=== PATIENT | female | born 1990 | race Hispanic/Latino ===

== ENCOUNTER → 2017-01-15 | Outpatient (CLI) | payer MEDICAID ==
--- NOTE | 2017-01-15 15:37 | REP ---
Three extremity right knee two views right knee Signed by Doc Case MD 01/15/2017 03:28 P
--- NOTE | 2017-01-15 15:37 | REP ---
Right tibia-fibula four views : There is no fracture or dislocation. Mineralization and joint spaces are normal. There are no calcifications or foreign bodies. Impression: Negative right tibia-fibula . Signed by Doc Case MD 01/15/2017 03:28 P
== END ==
LOC: M RAD 10:10
PROVIDERS: ATTEND Physician Assistant Medical
DX: M79.604 Pain in right leg (principal)

== ENCOUNTER → 2017-05-21 | Outpatient (CLI) | payer OTHER ==
[2017-05-21 12:44] LABS: ANION GAP 5 MEQ/L (8-16); BLOOD UREA NITROGEN 9 MG/DL (7-18); CALCIUM LEVEL 8.5 MG/DL (8.5-10.1); CARBON DIOXIDE LEVEL 31 MEQ/L (21-32); CHLORIDE LEVEL 104 MEQ/L (98-107); CREATININE FOR GFR 0.62 MG/DL (0.55-1.02); GLOMERULAR FILTRATION RATE > 60.0 (>60); GLUCOSE, FASTING 90 MG/DL (70-100); POTASSIUM SERUM 3.9 MEQ/L (3.5-5.1); SODIUM LEVEL 140 MEQ/L (136-145)
== END ==
LOC: M LAB 11:46
DX: R03.0 Elevated blood-pressure reading, without diagnosis of hypertension (principal)
CPT/HCPCS: 80048

== ENCOUNTER 2017-05-28 13:35 | Emergency (ER) | payer OTHER ==
[2017-05-28] MEDS: NS 1,000 ML IV (15:15)
[2017-05-28 16:21] LABS: ANION GAP 8 MEQ/L (8-16); BLOOD UREA NITROGEN 8 MG/DL (7-18); CALCIUM LEVEL 8.6 MG/DL (8.5-10.1); CARBON DIOXIDE LEVEL 26 MEQ/L (21-32); CHLORIDE LEVEL 101 MEQ/L (98-107); CREATININE FOR GFR 0.71 MG/DL (0.55-1.30); GLOMERULAR FILTRATION RATE > 60.0 (>60); GLUCOSE, FASTING 96 MG/DL (70-100); POTASSIUM SERUM 3.7 MEQ/L (3.5-5.1); SODIUM LEVEL 135 MEQ/L (136-145)
[2017-05-28 16:22] LABS: BASO % 0.2 % (0.0-1.0); EOS % 0.1 % (0.0-3.0); HEMATOCRIT 41.9 % (36.0-47.0); HEMOGLOBIN 14.5 g/dl (12.0-16.0); IMMATURE GRANULOCYTE % 0.3 % (0-0); LYMPH # 0.7 10^3/uL (1.5-6.5); LYMPH % 5.6 % (24.0-44.0); MEAN CORPUSCULAR HEMOGLOBIN 29.1 pg (27.0-33.0); MEAN CORPUSCULAR HGB CONC 34.6 g/dl (32.0-36.5); MONO # 0.6 10^3/uL (0.0-0.8); MONO % 4.6 % (0.0-5.0); NEUTROPHILS # 11.2 10^3/uL (1.8-7.7); NEUTROPHILS % 89.2 % (36.0-66.0); PLATELET COUNT, AUTOMATED 285 10^3/uL (150-450); RED BLOOD COUNT 4.99 10^6/uL (4.00-5.40); RED CELL DISTRIBUTION WIDTH 12.3 % (11.5-14.5); WHITE BLOOD COUNT 12.5 10^3/uL (4.0-10.0)
[2017-05-28 16:24] LABS: KETONE, URINE AUTO RFX 1+ mg/dL (NEGATIVE); MUCUS, URINE RFX SMALL (NEGATIVE); NITRITE, URINE AUTO RFX NEGATIVE (NEGATIVE); RBC, URINE AUTO RFX 4 /HPF (0-3); SPECIFIC GRAVITY UR AUTO RFX 1.018 (1.002-1.035); SQUAM EPITHELIAL CELL UR AURFX 9 /HPF (0-6); WBC, URINE AUTO RFX 3 /HPF (0-3)
[2017-05-28 16:25] LABS: LEUKOCYTE ESTERASE UR AUTO RFX TRACE (NEGATIVE)
[2017-05-28 16:36] LABS: INFLUENZA A AMPLIFICATION NEGATIVE (NEGATIVE); INFLUENZA B AMPLIFICATION NEGATIVE (NEGATIVE)
[2017-05-28 16:40] LABS: CONTROL LINE UCG INT CTR LINE PRESENT; URINE PREG TEST NEGATIVE (NEGATIVE)
[2017-05-28] MEDS: KETOROLAC 30 MG/ML VIAL (J1885) IV (17:11)
[2017-05-28] MEDS: ONDANSETRON 4MG/2ML VIAL (J2405) IV (17:15)
[2017-05-28] MEDS: ACETAMINOPHEN 325 MG TAB PO (17:24)
== END 2017-05-28 18:17 | disposition home or self-care (01) ==
LOC: M ED 13:35
DX: B34.9 Viral infection, unspecified (principal); R11.10 Vomiting, unspecified; R19.7 Diarrhea, unspecified
CPT/HCPCS: J2405

== ENCOUNTER 2017-05-30 08:48 | Emergency (ER) | payer OTHER | END 2017-05-30 09:25 | disposition home or self-care (01) | LOC: M ED 08:48 | DX: J03.90 Acute tonsillitis, unspecified (principal); E66.9 Obesity, unspecified; G89.29 Other chronic pain | CPT/HCPCS: 99283 ==

== ENCOUNTER 2017-11-13 16:47 | Emergency (ER) | payer OTHER ==
[2017-11-13] MEDS ORDERED: IPRATROPIUM 0.5MG/ALBUTEROL 2.5MG INH SOL UD 3ML (DUONEB)(J7620) NEB (17:30)
[2017-11-13] MEDS: METOPROLOL TART 25 MG TABLET PO (17:30)
[2017-11-13 17:57] LABS: BASO % 0.2 % (0.0-1.0); EOS % 0.3 % (0.0-3.0); HEMATOCRIT 39.7 % (36.0-47.0); HEMOGLOBIN 13.6 g/dl (12.0-15.5); IMMATURE GRANULOCYTE % 0.3 % (0-3.0); LYMPH # 2.7 10^3/uL (1.5-6.5); MEAN CORPUSCULAR HEMOGLOBIN 29.2 pg (27.0-33.0); MEAN CORPUSCULAR HGB CONC 34.3 g/dl (32.0-36.5); MEAN CORPUSCULAR VOLUME 85.4 fl (80.0-96.0); MONO # 0.7 10^3/uL (0.0-0.8); NEUTROPHILS # 5.3 10^3/uL (1.8-7.7); NEUTROPHILS % 60.2 % (36.0-66.0); PLATELET COUNT, AUTOMATED 251 10^3/uL (150-450); RED BLOOD COUNT 4.65 10^6/uL (4.00-5.40); RED CELL DISTRIBUTION WIDTH 12.1 % (11.5-14.5); WHITE BLOOD COUNT 8.9 10^3/uL (4.0-10.0)
[2017-11-13] MEDS: ASPIRIN 81 MG CHEW TABLET PO (17:57)
[2017-11-13 18:01] LABS: ABG BASE EXCESS -0.3 (-2.0-2.0); ABG HCO3 20.5 MEQ/L (22.0-26.0); ABG O2 SATURATION 98.8 % (95.0-99.0); ABG PARTIAL PRESSURE CO2 24.6 mmHg (35.0-45.0); ABG PARTIAL PRESSURE O2 113.4 mmHg (75.0-100.0); ABG STANDARD HCO3 24.2 MEQ/L (22.0-26.0); ABG TOTAL CO2 21.3 MEQ/L (22.0-29.0); ABG pH (ARTERIAL) 7.539 UNITS (7.350-7.450)
[2017-11-13 18:12] LABS: CONTROL LINE HCG INT CTR LINE PRESENT; HCG, SERUM QUALITATIVE NEGATIVE (NEGATIVE)
[2017-11-13 18:20] LABS: ALBUMIN 3.2 GM/DL (3.2-5.2); ALBUMIN/GLOBULIN RATIO 0.89 (1.00-1.93); ALKALINE PHOSPHATASE 106 U/L (45-117); ALT/SGPT 27 U/L (12-78); ANION GAP 8 MEQ/L (8-16); AST/SGOT 9 U/L (7-37); BILIRUBIN,DIRECT 0.1 MG/DL (0.0-0.2); BILIRUBIN,TOTAL 0.4 MG/DL (0.2-1.0); BLOOD UREA NITROGEN 12 MG/DL (7-18); CALCIUM LEVEL 8.3 MG/DL (8.5-10.1); CARBON DIOXIDE LEVEL 25 MEQ/L (21-32); CHLORIDE LEVEL 107 MEQ/L (98-107); CPK CREATINE PHOSPHOKINASE 67 U/L (26-192); CREATININE FOR GFR 0.71 MG/DL (0.55-1.30); GLOMERULAR FILTRATION RATE > 60.0 (>60); GLUCOSE, FASTING 87 MG/DL (70-100); POTASSIUM SERUM 3.5 MEQ/L (3.5-5.1); SODIUM LEVEL 140 MEQ/L (136-145); TOTAL PROTEIN 6.8 GM/DL (6.4-8.2); TROPONIN I < 0.02 NG/ML (< 0.10)
[2017-11-13 18:21] LABS: CK-MB VALUE MASS < 1.0 NG/ML (<3.6); MB/CK RELATIVE INDEX 1.49 (< OR =4)
== END 2017-11-13 19:05 | disposition home or self-care (01) ==
LOC: M ED 16:47
DX: J45.901 Unspecified asthma with (acute) exacerbation (principal); I10 Essential (primary) hypertension; M54.9 Dorsalgia, unspecified; Z79.51 Long term (current) use of inhaled steroids
CPT/HCPCS: 71046

== ENCOUNTER → 2017-11-19 | Outpatient (REF) | payer OTHER | LOC: M LAB REF 17:12 | DX: J02.9 Acute pharyngitis, unspecified (principal) | CPT/HCPCS: 87070 ==

== ENCOUNTER 2017-12-10 23:17 | Emergency (ER) | payer OTHER ==
[2017-12-11] MEDS: ONDANSETRON 4 MG ORAL DISINTEGRATING TAB (Q0162 PER 1MG) PO (02:00)
[2017-12-11] MEDS: ACETAMINOPHEN TAB 650MG DOSE (2X325MG) PO (02:00)
== END 2017-12-11 04:44 | disposition home or self-care (01) ==
LOC: M ED 23:17
DX: S06.0X9A Concussion with loss of consciousness of unspecified duration, initial encounter (principal); W22.09XA Striking against other stationary object, initial encounter; Y92.098 Other place in other non-institutional residence as the place of occurrence of the external cause; Z79.51 Long term (current) use of inhaled steroids
CPT/HCPCS: Q0162

== ENCOUNTER 2018-01-02 21:29 | Emergency (ER) | payer OTHER ==
[2018-01-02] MEDS: ONDANSETRON 4 MG ORAL DISINTEGRATING TAB (Q0162 PER 1MG) PO (22:47)
== END 2018-01-02 22:57 | disposition home or self-care (01) ==
LOC: M ED 21:29
DX: R11.0 Nausea (principal)
CPT/HCPCS: Q0162

== ENCOUNTER → 2018-01-07 | Outpatient (REF) | payer OTHER, MEDICAID ==
[2018-01-07 20:37] LABS: CONTROL LINE HCG INT CTR LINE PRESENT; HCG, SERUM QUALITATIVE NEGATIVE (NEGATIVE)
== END ==
LOC: M LAB REF 19:05
DX: N91.0 Primary amenorrhea (principal)
CPT/HCPCS: 84703

== ENCOUNTER → 2018-01-07 | Outpatient (CLI) | payer OTHER, MEDICAID | LOC: M PAIN 10:30 | DX: M96.1 Postlaminectomy syndrome, not elsewhere classified (principal); J45.909 Unspecified asthma, uncomplicated; Z79.899 Other long term (current) drug therapy | CPT/HCPCS: G0463 ==

== ENCOUNTER 2018-01-12 01:04 | Emergency (ER) | payer OTHER, MEDICAID | END 2018-01-12 03:30 | disposition left against medical advice (07) | LOC: M ED 01:04 | DX: Z53.20 Procedure and treatment not carried out because of patient's decision for unspecified reasons (principal) ==

== ENCOUNTER → 2018-01-14 | Outpatient (REF) | payer OTHER, MEDICAID ==
[2018-01-14 15:16] LABS: ALBUMIN 3.5 GM/DL (3.2-5.2); ALBUMIN/GLOBULIN RATIO 1.09 (1.00-1.93); ALKALINE PHOSPHATASE 104 U/L (45-117); ALT/SGPT 27 U/L (12-78); ANION GAP 7 MEQ/L (8-16); AST/SGOT 6 U/L (7-37); BILIRUBIN,TOTAL 0.3 MG/DL (0.2-1.0); BLOOD UREA NITROGEN 9 MG/DL (7-18); CALCIUM LEVEL 8.5 MG/DL (8.5-10.1); CARBON DIOXIDE LEVEL 28 MEQ/L (21-32); CHLORIDE LEVEL 105 MEQ/L (98-107); CHOLESTEROL LEVEL 133 MG/DL (<200); CREATININE FOR GFR 0.58 MG/DL (0.55-1.30); GLOMERULAR FILTRATION RATE > 60.0 (>60); GLUCOSE, FASTING 96 MG/DL (70-100); HCG, SERUM QUANTITATIVE < 1.0 MIU/ML; HDL CHOLESTEROL 50 MG/DL (>40); LDL CHOLESTEROL 68 MG/DL (<100); NON-HDL-C 83 MG/DL; POTASSIUM SERUM 4.3 MEQ/L (3.5-5.1); SODIUM LEVEL 140 MEQ/L (136-145); TOTAL PROTEIN 6.7 GM/DL (6.4-8.2); TRIGLYCERIDES LEVEL 74 MG/DL (<150)
== END ==
LOC: M LAB REF 12:04
DX: Z13.9 Encounter for screening, unspecified (principal)

== ENCOUNTER 2018-01-27 00:16 | Emergency (ER) | payer OTHER, MEDICAID ==
[2018-01-27] MEDS: KETOROLAC TROMETHAMINE 10 MG TAB PO (01:21)
[2018-01-27] MEDS: ONDANSETRON 4 MG ORAL DISINTEGRATING TAB (Q0162 PER 1MG) PO (01:22)
== END 2018-01-27 01:26 | disposition home or self-care (01) ==
LOC: M ED 00:16
DX: R51 Headache (principal); F33.9 Major depressive disorder, recurrent, unspecified
CPT/HCPCS: Q0162

== ENCOUNTER → 2018-02-04 | Outpatient (CLI) | payer OTHER, MEDICAID | LOC: M PAIN 11:00 | DX: M96.1 Postlaminectomy syndrome, not elsewhere classified (principal); J45.909 Unspecified asthma, uncomplicated; Z79.899 Other long term (current) drug therapy | CPT/HCPCS: G0463 ==

== ENCOUNTER 2018-03-20 19:02 | Emergency (ER) | payer OTHER, MEDICAID ==
[2018-03-20 19:52] LABS: BASO % 0.2 % (0.0-1.0); EOS # 0.1 10^3/uL (0.0-0.50); EOS % 1.6 % (0.0-3.0); HEMATOCRIT 40.3 % (36.0-47.0); HEMOGLOBIN 13.8 g/dl (12.0-15.5); IMMATURE GRANULOCYTE % 0.2 % (0-3.0); LYMPH # 3.6 10^3/uL (1.5-4.5); MEAN CORPUSCULAR HEMOGLOBIN 29.4 pg (27.0-33.0); MEAN CORPUSCULAR HGB CONC 34.2 g/dl (32.0-36.5); MEAN CORPUSCULAR VOLUME 85.9 fl (80.0-96.0); MONO # 0.7 10^3/uL (0.0-0.8); MONO % 8.4 % (0.0-5.0); NEUTROPHILS # 4.1 10^3/uL (1.8-7.7); NEUTROPHILS % 47.6 % (36.0-66.0); PLATELET COUNT, AUTOMATED 267 10^3/uL (150-450); RED BLOOD COUNT 4.69 10^6/uL (4.00-5.40); RED CELL DISTRIBUTION WIDTH 12.5 % (11.5-14.5); WHITE BLOOD COUNT 8.6 10^3/uL (4.0-10.0)
[2018-03-20 19:56] LABS: CONTROL LINE HCG INT CTR LINE PRESENT; HCG, SERUM QUALITATIVE NEGATIVE (NEGATIVE)
[2018-03-20] MEDS: METOCLOPRAMIDE INJ 10MG/2ML VIAL (J2765) IV (20:04)
[2018-03-20] MEDS: MORPHINE 2 MG/ML 1ML SYRINGE (J2270) IV (20:05)
[2018-03-20 20:13] LABS: ANION GAP 8 MEQ/L (8-16); BLOOD UREA NITROGEN 7 MG/DL (7-18); CARBON DIOXIDE LEVEL 24 MEQ/L (21-32); CHLORIDE LEVEL 106 MEQ/L (98-107); GLOMERULAR FILTRATION RATE > 60.0 (>60); GLUCOSE, FASTING 106 MG/DL (70-100); SODIUM LEVEL 138 MEQ/L (136-145)
[2018-03-20] MEDS: KETOROLAC 30 MG/ML VIAL (J1885) IV (21:22)
== END 2018-03-20 21:19 | disposition home or self-care (01) ==
LOC: M ED 19:02
DX: G43.909 Migraine, unspecified, not intractable, without status migrainosus (principal); I10 Essential (primary) hypertension; Z79.899 Other long term (current) drug therapy
CPT/HCPCS: J1885

== ENCOUNTER 2018-04-02 19:21 | Emergency (ER) | payer OTHER ==
[2018-04-02] MEDS: methylPREDNISolone INJ 125 MG/2 ML VIAL (J2930) IM (20:04)
[2018-04-02] MEDS: KETOROLAC 60 MG/2 ML VIAL (J1885) IM (20:04)
[2018-04-02] MEDS: BACLOFEN 10 MG TAB PO (20:10)
== END 2018-04-02 20:46 | disposition home or self-care (01) ==
LOC: M ED 19:21
DX: G89.29 Other chronic pain (principal); M54.5 Low back pain; I10 Essential (primary) hypertension; J45.909 Unspecified asthma, uncomplicated; F32.9 Major depressive disorder, single episode, unspecified
CPT/HCPCS: J1885

== ENCOUNTER 2018-04-06 14:12 | Emergency (ER) | payer OTHER ==
[2018-04-06 15:08] LABS: KETONE, URINE AUTO RFX NEGATIVE (NEGATIVE); MUCUS, URINE RFX SMALL (NEGATIVE); NITRITE, URINE AUTO RFX NEGATIVE (NEGATIVE); RBC, URINE AUTO RFX TNTC /HPF (0-3); SPECIFIC GRAVITY UR AUTO RFX 1.019 (1.002-1.035); SQUAM EPITHELIAL CELL UR AURFX 13 /HPF (0-6); YEAST LIKE CELL URINE AUTO RFX LARGE
[2018-04-06 15:09] LABS: LEUKOCYTE ESTERASE UR AUTO RFX 3+ (NEGATIVE); WBC, URINE AUTO RFX TNTC /HPF (0-3)
[2018-04-06] MEDS: GI COCKTAIL 50ML BTL(HYOSCYAMINE/MAALOX/LIDOCAINE VISCOUS)(1:3:1) PO (16:32)
[2018-04-06] MEDS: NITROFURANTOIN (MACROBID) 100 MG CAP PO (16:32)
== END 2018-04-06 16:39 | disposition home or self-care (01) ==
LOC: M ED 14:12
DX: N39.0 Urinary tract infection, site not specified (principal); K21.0 Gastro-esophageal reflux disease with esophagitis; I10 Essential (primary) hypertension; F32.9 Major depressive disorder, single episode, unspecified
CPT/HCPCS: 81001

== ENCOUNTER 2018-04-08 11:16 | Emergency (ER) | payer OTHER ==
[2018-04-08 12:05] LABS: BASO % 0.2 % (0.0-1.0); EOS # 0.1 10^3/uL (0.0-0.50); EOS % 1.1 % (0.0-3.0); HEMATOCRIT 41.2 % (36.0-47.0); IMMATURE GRANULOCYTE % 0.5 % (0-3.0); LYMPH # 2.4 10^3/uL (1.5-4.5); LYMPH % 28.8 % (24.0-44.0); MEAN CORPUSCULAR HEMOGLOBIN 29.4 pg (27.0-33.0); MEAN CORPUSCULAR VOLUME 86.6 fl (80.0-96.0); MONO # 0.6 10^3/uL (0.0-0.8); MONO % 7.3 % (0.0-5.0); NEUTROPHILS # 5.2 10^3/uL (1.8-7.7); NEUTROPHILS % 62.1 % (36.0-66.0); PLATELET COUNT, AUTOMATED 263 10^3/uL (150-450); RED BLOOD COUNT 4.76 10^6/uL (4.00-5.40); RED CELL DISTRIBUTION WIDTH 12.3 % (11.5-14.5); WHITE BLOOD COUNT 8.4 10^3/uL (4.0-10.0)
[2018-04-08] MEDS: NS 1,000 ML IV (12:09)
[2018-04-08] MEDS: ONDANSETRON 4MG/2ML VIAL (J2405) IV (12:09)
[2018-04-08] MEDS: GASTROGRAFIN SOLUTION 30ML PO ×2 (12:09→12:43)
[2018-04-08 12:29] LABS: AMORPHOUS SEDIMENT RFX SMALL (NEGATIVE); KETONE, URINE AUTO RFX 1+ mg/dL (NEGATIVE); MUCUS, URINE RFX SMALL (NEGATIVE); NITRITE, URINE AUTO RFX NEGATIVE (NEGATIVE); RBC, URINE AUTO RFX 2 /HPF (0-3); SQUAM EPITHELIAL CELL UR AURFX 5 /HPF (0-6); WBC, URINE AUTO RFX 7 /HPF (0-3)
[2018-04-08 12:30] LABS: LEUKOCYTE ESTERASE UR AUTO RFX 1+ (NEGATIVE)
[2018-04-08 12:44] LABS: ALBUMIN 3.5 GM/DL (3.2-5.2); ALBUMIN/GLOBULIN RATIO 1.06 (1.00-1.93); ALKALINE PHOSPHATASE 104 U/L (45-117); ALT/SGPT 43 U/L (12-78); AMYLASE 34 U/L (25-115); ANION GAP 6 MEQ/L (8-16); AST/SGOT 16 U/L (7-37); BILIRUBIN,TOTAL 0.6 MG/DL (0.2-1.0); BLOOD UREA NITROGEN 8 MG/DL (7-18); CALCIUM LEVEL 8.5 MG/DL (8.5-10.1); CARBON DIOXIDE LEVEL 27 MEQ/L (21-32); CHLORIDE LEVEL 103 MEQ/L (98-107); CREATININE FOR GFR 0.53 MG/DL (0.55-1.30); GLOMERULAR FILTRATION RATE > 60.0 (>60); GLUCOSE, FASTING 86 MG/DL (70-100); LIPASE 63 U/L (73-393); POTASSIUM SERUM 4.1 MEQ/L (3.5-5.1); SODIUM LEVEL 136 MEQ/L (136-145); TOTAL PROTEIN 6.8 GM/DL (6.4-8.2)
[2018-04-08 12:51] LABS: CONTROL LINE HCG INT CTR LINE PRESENT; HCG, SERUM QUALITATIVE NEGATIVE (NEGATIVE)
[2018-04-08] MEDS: TRIMETHOBENZAMIDE HCL INJ 200 MG/2 ML VIAL (J3250) IM (13:36)
[2018-04-08] MEDS ORDERED: ISOVUE-370 76% 100ML VIAL (Q9967) As Ordered (13:38)
== END 2018-04-08 14:41 | disposition home or self-care (01) ==
LOC: M ED 11:16
DX: R10.9 Unspecified abdominal pain (principal); R11.10 Vomiting, unspecified; I10 Essential (primary) hypertension; K21.9 Gastro-esophageal reflux disease without esophagitis; F32.9 Major depressive disorder, single episode, unspecified; Z98.1 Arthrodesis status; Z79.899 Other long term (current) drug therapy
CPT/HCPCS: Q9963

== ENCOUNTER → 2018-05-06 | Outpatient (CLI) | payer OTHER ==
[~2018-05-06] MED LIST: AMLO5TAB6 PO; AMOX400S2 PO; BREO1INH3; FLOV100A3; GABAPOW41; IBUP-1022 PO; IBUP-1114 PO; LIDO1SOL7 MT; LISI-542; MACR100C43 PO; METO5TAB2 PO; MONT10TA2; OXAY1TAB; PROT1TAB2 PO; THERPAK PO; TIGA300C2 PO; TIZA4CAP PO; TIZANIDINE; VENTAER; ZOFR4TAB14 PO
--- NOTE | 2018-05-24 01:22 | ECWPNPC ---
PATIENT NAME: NEGAR OLMEDO : 1990 GENDER: FEMALE VISIT DATE: 05/06/2018 DISCHARGE DATE: 05/06/18 1629 VISIT LOCKED DATE TIME: PHYSICIAN: GERALDO SOFIA MD RESOURCE: GERALDO SOFIA MD REASON FOR APPOINTMENT 1. PRE SEDATE HISTORY OF PRESENT ILLNESS HISTORY OF PRESENT ILLNESS: PAIN THE PATIENT DESCRIBES THE PAIN... 28 YEAR OLD FEMALE PATIENT WITH A HISTORY OF CHRONIC LOW BACK PAIN. THE PATIENT DESCRIBES THE PAIN SHARP AND CONTINUOUS WITH A PAIN SCORE OF 6-10/10 DEPENDING ON PHYSICAL ACTIVITY. THE PATIENT SAYS HER PAIN STARTED MANY YEARS AGO AND SHE HAD A BACK SURGERY IN MARCH 2014, BUT THE PAIN PERSISTED. THE PATIENT SAYS THAT SHE HAS DIFFICULTY DOING DAILY ACTIVITIES SUCH CLEANING, COOKING, AND GROCERY SHOPPING. PATIENT DENIES UNEXPLAINABLE WEIGHT LOSS, FEVER, CHILLS, NEW CHANGES ON HER URINARY OR BOWEL CONTROL. FALL RISK SCREENING: SCREENING :NO FALLS IN THE PAST YEAR CURRENT MEDICATIONS TAKING SINGULAIR 10 MG TABLET 1 TABLET ORALLY BEFORE BEDTIME TAKING VENTOLIN HFA 108 (90 BASE) MCG/ACT AEROSOL SOLUTION 2 PUFFS NEEDED INHALATION EVERY 6 HRS TAKING BREO ELLIPTA 200-25 MCG/INH AEROSOL POWDER BREATH ACTIVATED 1 PUFF(ANORO SENT IN ERROR) INHALATION ONCE A DAY TAKING AMLODIPINE BESYLATE 5 MG TABLET 1 TABLET, IF BP > 160/90 TAKE A 2ND TABLET ORALLY ONCE A DAY TAKING LISINOPRIL 5 MG TABLET 1 TABLET, IF BP > 160/90 TAKE A 2ND TABLET ORALLY BID TAKING GELY ALLERGY 60 MG TABLET 1 TABLET NEEDED ORALLY TWICE A DAY TAKING FLOVENT HFA 220 MCG/ACT AEROSOL 1 PUFF INHALATION TWICE A DAY TAKING FLONASE 50 MCG/ACT SUSPENSION 1 SPRAY IN EACH NOSTRIL NASALLY ONCE A DAY TAKING FEXOFENADINE HCL 180 MG TABLET 1 TABLET NEEDED ORALLY ONCE A DAY TAKING OMEPRAZOLE 20 MG CAPSULE DELAYED RELEASE 1 CAPSULE ORALLY ONCE A DAY TAKING TIZANIDINE HCL 4 MG TABLET 1 TABLET NEEDED ORALLY BEFORE BEDTIME TAKING GABAPENTIN 300 MG CAPSULE 1 CAPSULE ORALLY TID MDD3 TAKING PERCOCET 5-325 MG TABLET 1 TABLET NEEDED ORALLY Q8H PRN MDD#3 #45 ATB SHOULD LAST 30 DAYS TAKING MELOXICAM 7.5 MG TABLET 1 TABLET ORALLY BID MEDICATION LIST REVIEWED AND RECONCILED WITH THE PATIENT PAST MEDICAL HISTORY ASTHMA S/P LUMBAR LAMINECTOMY SYNDROME HTN GERD SEASONAL ALLERGIES ALLERGIES N.K.D.A. SURGICAL HISTORY LUMBAR FUSION 2013 FAMILY HISTORY FATHER: ALIVE MOTHER: ALIVE, DIAGNOSED WITH DIABETES, HYPERTENSION 2 SISTER(S) - HEALTHY. 3 SON(S) , 3 DAUGHTER(S) - HEALTHY. SON WITH SEIZURE DISORDER, AUTISMSON WITH HEART PROBLEMS, KIDNEY PROBLEMS, FAILURE TO THRIVE,. SOCIAL HISTORY GENERAL: TOBACCO USE ARE YOU A:CURRENT SMOKER ELECTRONIC CIGARETTE ARE YOU INTERESTED IN QUITTING?READY TO QUIT COUNSELED THE PATIENT ON TOBACCO USE, CESSATION [id number]/15/2018 HOW MANY CIGARETTES A DAY DO YOU SMOKE?5 OR LESS PATIENT COUNSELED ON THE DANGERS OF TOBACCO USE AND URGED TO QUIT:03/11/2018 RECREATIONAL DRUG USE DRUG USE?NO CAFFEINE CAFFEINE USE?YES HOW OFTEN AND HOW MUCH? 2-3 CUPS COFFEE/DAY HIV / HEP-C SCREENING HIV TEST OFFERED TO PATIENT:YES DATE OFFERED:03/11/2018 TEST ACCEPTED:NO HEP-C TEST OFFERED TO PATIENT:YES DATE OFFERED:03/11/2018 REASON:PATIENT DECLINED TEST ACCEPTED:NO REASON:PATIENT DECLINED BROCHURE PROVIDED TO PATIENTYES MOSQUE MOSQUE NO HINDUISM BELIEFS THAT WOULD IMPACT HEALTH CARE. LANGUAGE LANGUAGES SPOKEN:BOTH LUXEMBOURGER AND HUNGARIAN HUNGARIAN IS PRIMARY LANGUAGE, FLUENT IN LUXEMBOURGER EDUCATION LEVEL OF EDUCATION:NOT FINISHED HIGH SCHOOL LEARNING BARRIERS / SPECIAL NEEDS CHANGE FROM LAST VISIT?NO BARRIERS TO LEARNING?NO HEARING IMPAIRED?NO VISION IMPAIRED?NO PT HAS "A LAZY EYE", AND HAS GLASSES FOR THIS, WHICH SHE RARELY WEARS. PT DENIES VISUAL IMPAIRMENT COGNITIVELY IMPAIRED?NO READINESS TO LEARN?YES LEARNING PREFERENCES?NO LEARNING CAPABILITIES PRESENT?YES EMOTIONAL BARRIERS?NO SPECIAL DEVICES?NO OPERATING ROOM MANAGER NEEDED?NO HUNGARIAN IS PRIMARY LANGUAGE, BUT IS FLUENT IN LUXEMBOURGER DOMESTIC VIOLENCE DO YOU FEEL SAFE IN YOUR ENVIRONMENT?YES OCCUPATION: WORKS AT [employer]. DIET: REGULAR. EXERCISE: NONE. MARITAL STATUS: . OTHERS AT HOME: SPOUSE, CHILDREN. PAIN CLINIC PFS, CLERGY, PUBLIC HEALTH REFERRALS PFS REFERRAL NEEDED?NO CLERGY REFERRAL NEEDED?NO PUBLIC HEALTH REFERRAL NEEDED?NO WAS THE PROVIDER NOTIFIED OF ANY PERTINENT INFO?NO HAS THE PATIENT BEEN EDUCATED REGARDING HIS/HER PLAN OF CARE?YES HAS THE PATIENT BEEN EDUCATED REGARDING PAIN, THE RISK FOR PAIN, THE IMPORTANCE OF EFFECTIVE PAIN MANAGEMENT, AND THE PAIN ASSESSMENT PROCESS?YES ADVANCE DIRECTIVE ADVANCE DIRECTIVE DISCUSSED WITH PATIENT:YES PT HAS NO ADVANCED DIRECTIVES, DECLINES HCP INFORMATION AT THIS TIME REVIEWED WITH PT 01/07/18 1130 LASREVIEWED WITH PATIENT 02/04/18 1120 JSREVIEWED WITH PATIENT 05/06/18 1435 JS. HOSPITALIZATION/MAJOR DIAGNOSTIC PROCEDURE BACK SURGERY 2013 REVIEW OF SYSTEMS REVIEWED BY: PROVIDER: GERALDO SOFIA MD . CONSTITUTIONAL: ANY CHANGE IN YOUR MEDICAL CONDITION? NO . CHILLS NO . FEVER NO . INFECTION: DO YOU HAVE NEW INFECTIONS? NO . DO YOU HAVE HISTORY OF MRSA? NO . MUSCULOSKELETAL: ANY NEW PATTERNS OF PAIN OR NUMBNESS? NO . GASTROENTEROLOGY: ANY NEW CHANGE IN BOWEL CONTROL? YES, STATES STRESS INCONTINENCE OF BOWELS, INSTRUCTED PATIENT TO DISCUSS WITH PCP . GENITOURINARY: ANY NEW CHANGE IN BLADDER CONTROL? YES, STATES STRESS INCONTINENCE OF BLADDER, INSTRUCTED PATIENT TO DISCUSS WITH PCP . IS THERE A CHANCE YOU COULD BE ? NO . HEMATOLOGY/LYMPH: DO YOU TAKE ANY BLOOD THINNERS? (FOR EXAMPLE- COUMADIN, PLAVIX, AGGRENOX, PLATEL, PRADAXA, OR XARELTO) NO . WHEN WAS YOUR LAST DOSE? DATE: TIME: . NEUROLOGY: HAVE YOU FALLEN IN THE PAST 6 MONTHS? YES, STATES 3 FALLS IN ONE DAY IN MARCH, CAUSING INCREASED PAIN TO LOWER BACK, WENT TO ED, RECEIVED PAIN MEDICATION, NO IMAGING TAKEN . ANY NEW EXTREMITY NUMBNESS OR WEAKNESS? NO . CARDIOLOGY: DO YOU HAVE A PACEMAKER OR DEFIBRILLATOR? NO . RESPIRATORY: HAVE YOU BEEN SICK IN THE PAST WEEK? NO . FEVER NO . FLU LIKE SYMPTOMS? NO . COUGH NO . INTEGUMENTARY: DO YOU HAVE ANY RASHES OR OPEN SORES? NO . ALLERGIC/IMMUNO: ARE YOU ALLERGIC TO SHELLFISH OR IV DYE? NO . ANY NEW ALLERGIES? NO . PSYCHIATRIC: DO YOU HAVE THOUGHTS OF HURTING YOURSELF OR SOMEONE ELSE? NO . ARE YOU ABUSED, NEGLECTED, OR IN AN UNSAFE ENVIRONMENT? NO . ENDOCRINOLOGY: ARE YOU DIABETIC? NO . OTHER: DO YOU NEED ANY PRESCRIPTIONS? NO . IF YES, PLEASE LIST: ____ . ANY NEW PROBLEMS WITH YOUR MEDICATIONS? NO . WHEN DID YOU LAST EAT? ____ . WHEN DID YOU LAST DRINK? ____ . WHAT DID YOU LAST DRINK? ____ . NAME OF PERSON DRIVING YOU HOME? ____ . DO YOU HAVE ANY OTHER QUESTIONS OR CONCERNS NO . VITAL SIGNS WT 190.2 LBS, HT 62 IN, BMI 34.78 INDEX, BP 128/77 MM HG, HR 98 /MIN, RR 18 /MIN, TEMP 97.1 F, OXYGEN SAT % 98%, SAFE IN ENV? (Y/N) YES, NA INITIALS 14:13 VA, REVIEWED BY: JS. EXAMINATION GENERAL EXAMINATION: PATIENT IS ALERT O X 3 AND COOPERATIVE. TENDERNESS IN THE LOW BACK AREA. PRESENCE OF TRIGGER POINTS AND BANDS OF TISSUE WITH RESTRICTION OF MOVEMENT. ASSESSMENTS MYALGIA, OTHER SITE - M79.18 (PRIMARY) TREATMENT MYALGIA, OTHER SITE CLINICAL NOTES: WE DISCUSSED SEVERAL ISSUES WITH MRS. OLMEDO'S PAIN MANAGEMENT CASE. DUE TO THE TRIGGER POINTS, BANDS OF TISSUE, AND RESTRICTION OF MOVEMENT, I WOULD LIKE TO MOVE FORWARD WITH A TRIGGER POINT INJECTION. WE DISCUSSED THE BENEFITS, RISKS, AND ALTERNATIVES OF THE INJECTION AND THE PATIENT WOULD LIKE TO PROCEED. THE PATIENT WILL CONSIDER A LUMBAR FACET THERAPEUTIC BLOCK IN THE FUTURE DEPENDING ON THE RESULTS OF THE TRIGGER POINT. THE PATIENT WILL FOLLOW UP 3 WEEKS AFTER THE INJECTION. INSTRUCTIONS WERE GIVEN, QUESTIONS WERE ANSWERED, PATIENT REPORTS UNDERSTANDING AND AGREES WITH THE PLAN. , INSTRUCTIONS WERE GIVEN, QUESTIONS WERE ANSWERED, PATIENT REPORTS UNDERSTANDING AND AGREES WITH THE PLAN. I, GOOD EMERY, DOCUMENTED THE ABOVE INFORMATION ACTING A SCRIBE FOR DR. SOFIA. I HAVE REVIEWED THE ABOVE DOCUMENT, WRITTEN BY GOOD SMITH AND I VERIFY THAT IT IS ACCURATE. OTHERS NOTES: TRIGGER POINT INJECTION: YOUR EXPERIENCE MATERIAL WAS PRINTED,TRIGGER POINT INJECTION MATERIAL WAS PRINTED. PREVENTIVE MEDICINE PAIN CLINIC TEACHING: PROCEDURE TEACHING PT GIVEN WRITTEN AND VERBAL EDUCATION ON TRIGGER POINT INJECTION, PT ALSO GIVEN WRITTEN AND VERBAL PRE-PROCEDURE INSTRUCTION. PT VERBALIZES UNDERSTANDING OF ALL EDUCATION AND INSTRUCTIONS. RICHA ULLOA 05/06/2018 4:39:38 PM > . PROCEDURE CODES FA211 ESTABILISHED PATIENT [facility] FACILITY CHARGE G8427 CURRENT MEDS W/DOSAGES DOCUMENTED G8730 PAIN ASSESS POS TOOL F/U PLAN DOC DISPOSITION & COMMUNICATION FOLLOW UP 3 WEEKS ELECTRONICALLY SIGNED BY GERALDO SOFIA MD, ON 05/23/2018 AT 06:55 PM EST DISCLAIMER : THIS IS A VISIT SUMMARY EXTRACTED FROM THE [employer] CHART. IT IS NOT A COPY OF THE [employer] PROGRESS NOTE. MTDD
== END ==
LOC: M PAIN 15:15
PROVIDERS: ATTEND Anesthesiology
DX: M79.18 Myalgia, other site (principal); M54.5 Low back pain; J45.909 Unspecified asthma, uncomplicated; I10 Essential (primary) hypertension; K21.9 Gastro-esophageal reflux disease without esophagitis; F17.290 Nicotine dependence, other tobacco product, uncomplicated; Z79.51 Long term (current) use of inhaled steroids; Z79.899 Other long term (current) drug therapy; Z91.81 History of falling

== ENCOUNTER → 2018-07-06 | Outpatient (CLI) | payer OTHER ==
[~2018-07-06] MED LIST changes: +BUPIVACAINE HCL 0.25% 10 ML VIAL As Ordered ONE; +BUPIVACAINE HCL 0.25% 30 ML VIAL As Ordered ONE; +TRIAMCINOLONE ACETONIDE SUSP 40 MG/ML VIAL (J3301) As Ordered ONE; +diazePAM 5 MG TAB As Ordered ONE; +oxyCODONE 5MG TAB As Ordered ONE
--- NOTE | 2018-07-20 02:01 | ECWPNPC ---
PATIENT NAME: NEGAR OLMEDO : 1990 GENDER: FEMALE VISIT DATE: 07/06/2018 DISCHARGE DATE: 07/06/18 1505 VISIT LOCKED DATE TIME: PHYSICIAN: GERALDO SOFIA MD RESOURCE: GERALDO SOFIA MD HISTORY OF PRESENT ILLNESS HISTORY OF PRESENT ILLNESS: PAIN THE PATIENT DESCRIBES THE PAIN... FALL RISK SCREENING: SCREENING : NO FALLS IN THE PAST YEAR. CURRENT MEDICATIONS TAKING MELOXICAM 7.5 MG TABLET 1 TABLET ORALLY BID, NOTES: 2 WEEKS TAKING VENTOLIN HFA 108 (90 BASE) MCG/ACT AEROSOL SOLUTION 2 PUFFS NEEDED INHALATION EVERY 6 HRS, NOTES: 2 WEEKS TAKING BREO ELLIPTA 200-25 MCG/INH AEROSOL POWDER BREATH ACTIVATED 1 PUFF(ANORO SENT IN ERROR) INHALATION ONCE A DAY, NOTES: 2 WEEKS TAKING GELY ALLERGY 60 MG TABLET 1 TABLET NEEDED ORALLY TWICE A DAY, NOTES: 2 WEEKS TAKING FLOVENT HFA 220 MCG/ACT AEROSOL 1 PUFF INHALATION TWICE A DAY, NOTES: 2 WEEKS TAKING AMLODIPINE BESYLATE 5 MG TABLET 1 TABLET, IF BP > 160/90 TAKE A 2ND TABLET ORALLY ONCE A DAY, NOTES: 2 WEEKS TAKING LISINOPRIL 10 MG TABLET 1 TABLET ORALLY BID, NOTES: 2 WEEKS TAKING PERCOCET 5-325 MG TABLET 1 TABLET NEEDED ORALLY Q8H PRN MDD#3 #45 ATB SHOULD LAST 30 DAYS, NOTES: 1 MONTH TAKING GABAPENTIN 300 MG CAPSULE 1 CAPSULE ORALLY TID MDD3, NOTES: 2-3 WEEKS TAKING TIZANIDINE HCL 4 MG TABLET 1 TABLET NEEDED ORALLY BEFORE BEDTIME, NOTES: 2-3 WEEKS NOT-TAKING SINGULAIR 10 MG TABLET 1 TABLET ORALLY BEFORE BEDTIME NOT-TAKING OMEPRAZOLE 20 MG CAPSULE DELAYED RELEASE 1 CAPSULE ORALLY ONCE A DAY NOT-TAKING FLONASE 50 MCG/ACT SUSPENSION 1 SPRAY IN EACH NOSTRIL NASALLY ONCE A DAY MEDICATION LIST REVIEWED AND RECONCILED WITH THE PATIENT PAST MEDICAL HISTORY ASTHMA S/P LUMBAR LAMINECTOMY SYNDROME HTN GERD SEASONAL ALLERGIES ALLERGIES N.K.D.A. SURGICAL HISTORY LUMBAR FUSION 2013 FAMILY HISTORY FATHER: ALIVE MOTHER: ALIVE, DIAGNOSED WITH HYPERTENSION, DIABETES 2 SISTER(S) - HEALTHY. 3 SON(S) , 3 DAUGHTER(S) - HEALTHY. SON WITH SEIZURE DISORDER, AUTISMSON WITH HEART PROBLEMS, KIDNEY PROBLEMS, FAILURE TO THRIVE,. SOCIAL HISTORY GENERAL: TOBACCO USE ARE YOU A:CURRENT SMOKER ELECTRONIC CIGARETTE ARE YOU INTERESTED IN QUITTING?READY TO QUIT COUNSELED THE PATIENT ON TOBACCO USE, CESSATION [id number]/15/2018 HOW MANY CIGARETTES A DAY DO YOU SMOKE?5 OR LESS PATIENT COUNSELED ON THE DANGERS OF TOBACCO USE AND URGED TO QUIT:07/06/2018 LATEX QUESTIONNAIRE LATEX ALLERGY : HAVE YOU EVER DEVELOPED ANY TYPE OF REACTION AFTER HANDLING LATEX PRODUCTS SUCH RUBBER GLOVES, CONDOMS, DIAPHRAGMS, BALLOONS, SOCKS, OR UNDERWEAR?NO LATEX ALLERGY : HAVE YOU EVER DEVELOPED ANY TYPE OF REACTION DURING OR AFTER DENTAL APPOINTMENT, VAGINAL/RECTAL EXAMINATION, SURGICAL PROCEDURE, OR ANY OTHER EXPOSURE?NO LATEX RISK : HAVE YOU EVER HAD ANY DIFFICULTY BREATHING OR HIVES AFTER EATING OR HANDLING ANY FRUITS, OR VEGETABLES; SUCH KIWI, BANANAS, STONE FRUITS, OR CHESTNUTSNO LATEX RISK : DO YOU HAVE A PREVIOUS PERSONAL HISTORY OF MORE THAN NINE SURGERIES, SPINA BIFIDA, OR REPEATED CATHERTIZATIONS? NO LATEX RISK : ARE YOU FREQUENTLY EXPOSED TO LATEX PRODUCTS IN YOUR OCCUPATION?NO DATE ASKED : 07/06/2018 RECREATIONAL DRUG USE DRUG USE?NO CAFFEINE CAFFEINE USE?YES HOW OFTEN AND HOW MUCH? 2-3 CUPS COFFEE/DAY HIV / HEP-C SCREENING HIV TEST OFFERED TO PATIENT:YES DATE OFFERED:03/11/2018 TEST ACCEPTED:NO HEP-C TEST OFFERED TO PATIENT:YES DATE OFFERED:03/11/2018 REASON:PATIENT DECLINED TEST ACCEPTED:NO REASON:PATIENT DECLINED BROCHURE PROVIDED TO PATIENTYES ROMAN CATHOLIC ROMAN CATHOLIC NO METHODIST BELIEFS THAT WOULD IMPACT HEALTH CARE. LANGUAGE LANGUAGES SPOKEN:BOTH TURKMEN AND KHMER KHMER IS PRIMARY LANGUAGE, FLUENT IN TURKMEN EDUCATION LEVEL OF EDUCATION:NOT FINISHED HIGH SCHOOL LEARNING BARRIERS / SPECIAL NEEDS CHANGE FROM LAST VISIT?NO BARRIERS TO LEARNING?NO HEARING IMPAIRED?NO VISION IMPAIRED?NO PT HAS "A LAZY EYE", AND HAS GLASSES FOR THIS, WHICH SHE RARELY WEARS. PT DENIES VISUAL IMPAIRMENT COGNITIVELY IMPAIRED?NO READINESS TO LEARN?YES LEARNING PREFERENCES?NO LEARNING CAPABILITIES PRESENT?YES EMOTIONAL BARRIERS?NO SPECIAL DEVICES?NO CAR REFINISHER NEEDED?NO KHMER IS PRIMARY LANGUAGE, BUT IS FLUENT IN TURKMEN DOMESTIC VIOLENCE DO YOU FEEL SAFE IN YOUR ENVIRONMENT?YES OCCUPATION: WORKS AT [employer]. DIET: REGULAR. EXERCISE: NONE. MARITAL STATUS: . OTHERS AT HOME: SPOUSE, CHILDREN. PAIN CLINIC PFS, CLERGY, PUBLIC HEALTH REFERRALS PFS REFERRAL NEEDED?NO CLERGY REFERRAL NEEDED?NO PUBLIC HEALTH REFERRAL NEEDED?NO WAS THE PROVIDER NOTIFIED OF ANY PERTINENT INFO?YES HAS THE PATIENT BEEN EDUCATED REGARDING HIS/HER PLAN OF CARE?YES HAS THE PATIENT BEEN EDUCATED REGARDING PAIN, THE RISK FOR PAIN, THE IMPORTANCE OF EFFECTIVE PAIN MANAGEMENT, AND THE PAIN ASSESSMENT PROCESS?YES ADVANCE DIRECTIVE ADVANCE DIRECTIVE DISCUSSED WITH PATIENT:YES PT HAS NO ADVANCED DIRECTIVES, DECLINES HCP INFORMATION AT THIS TIME REVIEWED WITH PT 01/07/18 1130 LASREVIEWED WITH PATIENT 02/04/18 1120 JSREVIEWED WITH PATIENT 05/06/18 1435 JS. HOSPITALIZATION/MAJOR DIAGNOSTIC PROCEDURE BACK SURGERY 2013 REVIEW OF SYSTEMS REVIEWED BY: PROVIDER: . CONSTITUTIONAL: ANY CHANGE IN YOUR MEDICAL CONDITION? NO . CHILLS NO . FEVER NO . INFECTION: DO YOU HAVE NEW INFECTIONS? NO . DO YOU HAVE HISTORY OF MRSA? NO . MUSCULOSKELETAL: ANY NEW PATTERNS OF PAIN OR NUMBNESS? NO . GASTROENTEROLOGY: ANY NEW CHANGE IN BOWEL CONTROL? NO . GENITOURINARY: ANY NEW CHANGE IN BLADDER CONTROL? NO . IS THERE A CHANCE YOU COULD BE ? NO . HEMATOLOGY/LYMPH: DO YOU TAKE ANY BLOOD THINNERS? (FOR EXAMPLE- COUMADIN, PLAVIX, AGGRENOX, PLATEL, PRADAXA, OR XARELTO) NO . WHEN WAS YOUR LAST DOSE? DATE: TIME: . NEUROLOGY: HAVE YOU FALLEN IN THE PAST 12 MONTHS? YES, PT STATES THAT SHE FELL AT HOME IN DRIVEWAY, SLIPPED ON ICE, WENT TO ED, RECEIVED INJECTIONS FOR PAIN. 2 MONTHS AGO . ANY NEW EXTREMITY NUMBNESS OR WEAKNESS? YES, INCREASED PAIN AND WEAKNESS IN LEGS . CARDIOLOGY: DO YOU HAVE A PACEMAKER OR DEFIBRILLATOR? NO . RESPIRATORY: HAVE YOU BEEN SICK IN THE PAST WEEK? NO . FEVER NO . FLU LIKE SYMPTOMS? NO . COUGH NO . INTEGUMENTARY: DO YOU HAVE ANY RASHES OR OPEN SORES? NO . ALLERGIC/IMMUNO: ARE YOU ALLERGIC TO IV DYE? NO . ANY NEW ALLERGIES? NO . PSYCHIATRIC: DO YOU HAVE THOUGHTS OF HURTING YOURSELF OR SOMEONE ELSE? NO . ARE YOU ABUSED, NEGLECTED, OR IN AN UNSAFE ENVIRONMENT? NO . ENDOCRINOLOGY: ARE YOU DIABETIC? NO . OTHER: DO YOU NEED ANY PRESCRIPTIONS? NO . IF YES, PLEASE LIST: ____ . ANY NEW PROBLEMS WITH YOUR MEDICATIONS? NO . WHEN DID YOU LAST EAT? 07/05 8PM . WHEN DID YOU LAST DRINK? 07/05 11PM . WHAT DID YOU LAST DRINK? WATER . NAME OF PERSON DRIVING YOU HOME? ELSI VO . DO YOU HAVE ANY OTHER QUESTIONS OR CONCERNS NO . VITAL SIGNS WT 193 LBS, HT 62 IN, BMI 35.30 INDEX, BP 146/94 MM HG, HR 88 /MIN, RR 18 /MIN, TEMP 98.6 F, OXYGEN SAT % 97%, SAFE IN ENV? (Y/N) Y, NA INITIALS AW 1313, REVIEWED BY: DS. ASSESSMENTS MYALGIA, OTHER SITE - M79.18 (PRIMARY) PROCEDURES PN TRIGGER POINT INJECTION WITH STEROIDS PRE PROCEDURE DIAGNOSIS 1. MYALGIA 2. PAIN AT BILATERAL LOW BACK AREA POST PROCEDURE DIAGNOSIS 1. MYALGIA 2. PAIN AT BILATERAL LOW BACK AREA PROCEDURE TRIGGER POINT INJECTION AT BILATERAL LOW BACK AREA SURGEON DR. GERALDO SOFIA RAIL SPLITTER NONE ANESTHESIA LOCAL PRE PROCEDURE NOTE THE PATIENT HAS A HISTORY OF CHRONIC PAIN AT THE RIGHT AND LEFT LOW BACK AREA. I EVALUATE THE PATIENT AND REVIEWED THE CHART. THERE IS EVIDENCE OF BANDS OF TISSUE WITH RESTRICTION OF MOVEMENT AND PRESENCE OF TRIGGER POINT AT THE AFFECTED AREA. I WENT OVER THE RISKS, ALTERNATIVES, AND BENEFITS ASSOCIATED WITH THIS PROCEDURE. THE PATIENT WOULD LIKE TO PROCEED AND GIVE CONSENT TO PERFORMED THE PROCEDURE. THE PATIENT DENIES UNEXPLAINABLE WEIGHT LOSS, FEVER, CHILLS, OR NEW CHANGES IN URINARY OR BOWEL CONTROL DESCRIPTION OF PROCEDURE THE PATIENT WAS BROUGHT TO THE PROCEDURE ROOM AND PLACED IN THE SITTING POSITION. THE AREA WAS CLEANED WITH ALCOHOL. THE PROCEDURE WAS DONE USING ASEPTIC STERILE TECHNIQUE. I CHECKED LATERALITY AND THE LEVEL WHERE THE PROCEDURE WAS GOING TO BE PERFORMED WITH THE PATIENT AND THE SUPPORTING STAFF AT THE MOMENT OF THE TIME OUT IN THE PROCEDURE ROOM. USING A 25-GAUGE NEEDLE, TRIGGER POINTS WERE INJECTED AT THE RIGHT AND LEFT LOW BACK AREA WITH A TOTAL OF 40 ML OF BUPIVACAINE 0.25% AND KENALOG 40 MG. THERE WAS NO EVIDENCE OF BLOOD, PARESTHESIA OR CEREBROSPINAL FLUID DURING THE PROCEDURE. THE PATIENT WAS SENT TO THE RECOVERY ROOM. THE PATIENT WAS MOVING THE EXTREMITIES AND DOING WELL. THERE WAS NO COMPLICATION DURING THE PROCEDURE POST PROCEDURE NOTE THE PATIENT WILL BE SEEN IN A FOLLOW UP IN THE NEXT FEW WEEKS. INSTRUCTIONS WERE GIVEN, QUESTIONS WERE ANSWERED, AND THE PATIENT EXPRESSED UNDERSTANDING AND AGREES WITH THE PLAN. I, GOOD EMERY, DOCUMENTED THE ABOVE INFORMATION ACTING A SCRIBE FOR DR. SOFIA. I HAVE REVIEWED THE ABOVE DOCUMENT, WRITTEN BY GOOD SMITH AND I VERIFY THAT IT IS ACCURATE. PROCEDURE CODES 14356 INJ TRIGGER POINT / MUSCL DISPOSITION & COMMUNICATION FOLLOW UP 3 WEEKS ELECTRONICALLY SIGNED BY GERALDO SOFIA MD, MD ON 07/19/2018 AT 06:31 PM EDT DISCLAIMER : THIS IS A VISIT SUMMARY EXTRACTED FROM THE [employer] CHART. IT IS NOT A COPY OF THE [employer] PROGRESS NOTE. SONU
== END ==
LOC: M PAIN 12:30
PROVIDERS: ATTEND Anesthesiology
DX: M79.18 Myalgia, other site (principal); J45.909 Unspecified asthma, uncomplicated; I10 Essential (primary) hypertension; K21.9 Gastro-esophageal reflux disease without esophagitis; F17.290 Nicotine dependence, other tobacco product, uncomplicated; Z98.1 Arthrodesis status; Z79.891 Long term (current) use of opiate analgesic; Z79.899 Other long term (current) drug therapy
CPT/HCPCS: 20552; J3301

== ENCOUNTER 2018-07-20 09:14 | Outpatient (RCR) | payer OTHER ==
[~2018-07-20 09:14] MED LIST changes: -BUPIVACAINE HCL 0.25% 10 ML VIAL As Ordered ONE; -BUPIVACAINE HCL 0.25% 30 ML VIAL As Ordered ONE; -TRIAMCINOLONE ACETONIDE SUSP 40 MG/ML VIAL (J3301) As Ordered ONE; -diazePAM 5 MG TAB As Ordered ONE; -oxyCODONE 5MG TAB As Ordered ONE
== END 2018-07-25 ==
LOC: M PT 09:14
PROVIDERS: ATTEND Physician Assistant Medical
DX: Z51.89 Encounter for other specified aftercare (principal); M25.561 Pain in right knee

== ENCOUNTER → 2018-08-20 | Outpatient (CLI) | payer OTHER ==
[~2018-08-20] MED LIST changes: -LIDO1SOL7 MT; +LIDO1SOL8 MT
--- NOTE | 2018-09-06 00:38 | ECWPNPC ---
PATIENT NAME: NEGAR OLMEDO : 1990 GENDER: FEMALE VISIT DATE: 08/20/2018 DISCHARGE DATE: 08/20/18 1454 VISIT LOCKED DATE TIME: PHYSICIAN: GERALDO SOFIA MD RESOURCE: GERALDO SOFIA MD REASON FOR APPOINTMENT 1. POST TPI R/S FROM 07/26 HISTORY OF PRESENT ILLNESS HISTORY OF PRESENT ILLNESS: PAIN THE PATIENT DESCRIBES THE PAIN... 28 YEAR OLD FEMALE PATIENT WITH A HISTORY OF CHRONIC BACK PAIN. THE PATIENT DESCRIBES THE PAIN SHARP AND CONTINUOUS WITH A PAIN SCORE OF 7-10/10 DEPENDING ON PHYSICAL ACTIVITY. THE PATIENT RECEIVED A TRIGGER POINT INJECTION ON 07/06/2018 AND REPORTS THAT IT DID NOT HELP. THE PATIENT HAS BEEN USING 1 OXYCODONE PER DAY TO AID IN PAIN RELIEF. THE PATIENT HAS A HISTORY OF A BACK SURGERY IN 2013, BUT SAYS HER PAIN PERSISTED. PATIENT DENIES UNEXPLAINABLE WEIGHT LOSS, FEVER, CHILLS, NEW CHANGES ON HER URINARY OR BOWEL CONTROL. FALL RISK SCREENING: SCREENING :NO FALLS REPORTED IN THE LAST YEAR CURRENT MEDICATIONS TAKING VENTOLIN HFA 108 (90 BASE) MCG/ACT AEROSOL SOLUTION 2 PUFFS NEEDED INHALATION EVERY 6 HRS TAKING BREO ELLIPTA 200-25 MCG/INH AEROSOL POWDER BREATH ACTIVATED 1 PUFF(ANORO SENT IN ERROR) INHALATION ONCE A DAY TAKING FLOVENT HFA 220 MCG/ACT AEROSOL 1 PUFF INHALATION TWICE A DAY TAKING AMLODIPINE BESYLATE 5 MG TABLET 1 TABLET, IF BP > 160/90 TAKE A 2ND TABLET ORALLY ONCE A DAY TAKING LISINOPRIL 10 MG TABLET 1 TABLET ORALLY BID TAKING TIZANIDINE HCL 4 MG TABLET 1 TABLET NEEDED ORALLY BEFORE BEDTIME TAKING GABAPENTIN 300 MG CAPSULE 1 CAPSULE ORALLY TID MDD3 TAKING PERCOCET 5-325 MG TABLET 1 TABLET NEEDED ORALLY Q8H PRN MDD#3 #45 ATB SHOULD LAST 30 DAYS NOT-TAKING MELOXICAM 7.5 MG TABLET 1 TABLET ORALLY BID NOT-TAKING GELY ALLERGY 60 MG TABLET 1 TABLET NEEDED ORALLY TWICE A DAY NOT-TAKING SINGULAIR 10 MG TABLET 1 TABLET ORALLY BEFORE BEDTIME NOT-TAKING OMEPRAZOLE 20 MG CAPSULE DELAYED RELEASE 1 CAPSULE ORALLY ONCE A DAY NOT-TAKING FLONASE 50 MCG/ACT SUSPENSION 1 SPRAY IN EACH NOSTRIL NASALLY ONCE A DAY MEDICATION LIST REVIEWED AND RECONCILED WITH THE PATIENT PAST MEDICAL HISTORY ASTHMA S/P LUMBAR LAMINECTOMY SYNDROME HTN GERD SEASONAL ALLERGIES BACK PAIN ALLERGIES N.K.D.A. SURGICAL HISTORY LUMBAR FUSION 2013 FAMILY HISTORY FATHER: ALIVE MOTHER: ALIVE, DIAGNOSED WITH DIABETES, HYPERTENSION 2 SISTER(S) - HEALTHY. 3 SON(S) , 3 DAUGHTER(S) - HEALTHY. SON WITH SEIZURE DISORDER, AUTISM\\NSON WITH HEART PROBLEMS, KIDNEY PROBLEMS, FAILURE TO THRIVE,. SOCIAL HISTORY GENERAL: TOBACCO USE ARE YOU A:CURRENT SMOKER ELECTRONIC CIGARETTE ARE YOU INTERESTED IN QUITTING?THINKING ABOUT QUITTING HOW MANY CIGARETTES A DAY DO YOU SMOKE?5 OR LESS PATIENT COUNSELED ON THE DANGERS OF TOBACCO USE AND URGED TO QUIT:08/20/2018 HIV / HEP-C SCREENING HIV TEST OFFERED TO PATIENT:YES DATE OFFERED:03/11/2018 TEST ACCEPTED:NO HEP-C TEST OFFERED TO PATIENT:YES DATE OFFERED:03/11/2018 REASON:PATIENT DECLINED TEST ACCEPTED:NO REASON:PATIENT DECLINED BROCHURE PROVIDED TO PATIENTYES OTHERS AT HOME: SPOUSE, CHILDREN. EDUCATION LEVEL OF EDUCATION:NOT FINISHED HIGH SCHOOL DIET: REGULAR. LANGUAGE LANGUAGES SPOKEN:BOTH VIETNAMESE AND SYRIAN SYRIAN IS PRIMARY LANGUAGE, FLUENT IN VIETNAMESE DOMESTIC VIOLENCE DO YOU FEEL SAFE IN YOUR ENVIRONMENT?YES RECREATIONAL DRUG USE DRUG USE?NO EXERCISE: NONE. LEARNING BARRIERS / SPECIAL NEEDS CHANGE FROM LAST VISIT?NO BARRIERS TO LEARNING?NO HEARING IMPAIRED?NO VISION IMPAIRED?NO PT HAS "A LAZY EYE", AND HAS GLASSES FOR THIS, WHICH SHE RARELY WEARS. PT DENIES VISUAL IMPAIRMENT COGNITIVELY IMPAIRED?NO READINESS TO LEARN?YES LEARNING PREFERENCES?NO LEARNING CAPABILITIES PRESENT?YES EMOTIONAL BARRIERS?NO SPECIAL DEVICES?NO PROFESSOR OF LATIN AMERICAN STUDIES NEEDED?NO SYRIAN IS PRIMARY LANGUAGE, BUT IS FLUENT IN VIETNAMESE PAIN CLINIC PFS, CLERGY, PUBLIC HEALTH REFERRALS PFS REFERRAL NEEDED?NO CLERGY REFERRAL NEEDED?NO PUBLIC HEALTH REFERRAL NEEDED?NO WAS THE PROVIDER NOTIFIED OF ANY PERTINENT INFO?YES HAS THE PATIENT BEEN EDUCATED REGARDING HIS/HER PLAN OF CARE?YES HAS THE PATIENT BEEN EDUCATED REGARDING PAIN, THE RISK FOR PAIN, THE IMPORTANCE OF EFFECTIVE PAIN MANAGEMENT, AND THE PAIN ASSESSMENT PROCESS?YES LATEX QUESTIONNAIRE LATEX ALLERGY : HAVE YOU EVER DEVELOPED ANY TYPE OF REACTION AFTER HANDLING LATEX PRODUCTS SUCH RUBBER GLOVES, CONDOMS, DIAPHRAGMS, BALLOONS, SOCKS, OR UNDERWEAR?NO LATEX ALLERGY : HAVE YOU EVER DEVELOPED ANY TYPE OF REACTION DURING OR AFTER DENTAL APPOINTMENT, VAGINAL/RECTAL EXAMINATION, SURGICAL PROCEDURE, OR ANY OTHER EXPOSURE?NO DATE ASKED : 07/06/2018 LATEX RISK : HAVE YOU EVER HAD ANY DIFFICULTY BREATHING OR HIVES AFTER EATING OR HANDLING ANY FRUITS, OR VEGETABLES; SUCH KIWI, BANANAS, STONE FRUITS, OR CHESTNUTSNO LATEX RISK : DO YOU HAVE A PREVIOUS PERSONAL HISTORY OF MORE THAN NINE SURGERIES, SPINA BIFIDA, OR REPEATED CATHERTIZATIONS? NO LATEX RISK : ARE YOU FREQUENTLY EXPOSED TO LATEX PRODUCTS IN YOUR OCCUPATION?NO CAFFEINE CAFFEINE USE?YES HOW OFTEN AND HOW MUCH? 2-3 CUPS COFFEE/DAY ADVANCE DIRECTIVE ADVANCE DIRECTIVE DISCUSSED WITH PATIENT:YES PT HAS NO ADVANCED DIRECTIVES, DECLINES HCP INFORMATION AT THIS TIME. TEMPLE TEMPLE NO CHURCH BELIEFS THAT WOULD IMPACT HEALTH CARE. MARITAL STATUS: . OCCUPATION: WORKS AT [employer]. REVIEWED WITH PT 01/07/18 1130 LASREVIEWED WITH PATIENT 02/04/18 1120 JSREVIEWED WITH PATIENT 05/06/18 1435 JSREVIEWED WITH PATIENT 08/20/18 1340 JS. HOSPITALIZATION/MAJOR DIAGNOSTIC PROCEDURE BACK SURGERY 2013 REVIEW OF SYSTEMS REVIEWED BY: PROVIDER: GERALDO SOFIA MD . CONSTITUTIONAL: ANY CHANGE IN YOUR MEDICAL CONDITION? NO . CHILLS NO . FEVER NO . INFECTION: DO YOU HAVE NEW INFECTIONS? NO . DO YOU HAVE HISTORY OF MRSA? NO . MUSCULOSKELETAL: ANY NEW PATTERNS OF PAIN OR NUMBNESS? NO . GASTROENTEROLOGY: ANY NEW CHANGE IN BOWEL CONTROL? NO . GENITOURINARY: ANY NEW CHANGE IN BLADDER CONTROL? NO . IS THERE A CHANCE YOU COULD BE ? NO . HEMATOLOGY/LYMPH: DO YOU TAKE ANY BLOOD THINNERS? (FOR EXAMPLE- COUMADIN, PLAVIX, AGGRENOX, PLATEL, PRADAXA, OR XARELTO) NO . WHEN WAS YOUR LAST DOSE? DATE: TIME: . NEUROLOGY: HAVE YOU FALLEN IN THE PAST 12 MONTHS? NO . ANY NEW EXTREMITY NUMBNESS OR WEAKNESS? NO . CARDIOLOGY: DO YOU HAVE A PACEMAKER OR DEFIBRILLATOR? NO . RESPIRATORY: HAVE YOU BEEN SICK IN THE PAST WEEK? NO . FEVER NO . FLU LIKE SYMPTOMS? NO . COUGH NO . INTEGUMENTARY: DO YOU HAVE ANY RASHES OR OPEN SORES? NO . ALLERGIC/IMMUNO: ARE YOU ALLERGIC TO IV DYE? NO . ANY NEW ALLERGIES? NO . PSYCHIATRIC: DO YOU HAVE THOUGHTS OF HURTING YOURSELF OR SOMEONE ELSE? NO . ARE YOU ABUSED, NEGLECTED, OR IN AN UNSAFE ENVIRONMENT? NO . ENDOCRINOLOGY: ARE YOU DIABETIC? NO . OTHER: DO YOU NEED ANY PRESCRIPTIONS? NO . IF YES, PLEASE LIST: ____ . ANY NEW PROBLEMS WITH YOUR MEDICATIONS? NO . WHEN DID YOU LAST EAT? ____ . WHEN DID YOU LAST DRINK? ____ . WHAT DID YOU LAST DRINK? ____ . NAME OF PERSON DRIVING YOU HOME? ____ . DO YOU HAVE ANY OTHER QUESTIONS OR CONCERNS YES, STATES MIDDLE BACK AND UPPER BACK HAVE BEEN BOTHERING HER A LOT LATELY . VITAL SIGNS WT 190.8 LBS, HT 62 IN, BMI 34.89 INDEX, BP 140/93 MM HG, HR 70 /MIN, RR 18 /MIN, TEMP 98.1 F, OXYGEN SAT % 98%, SAFE IN ENV? (Y/N) YES, NA INITIALS AW 1325, REVIEWED BY: YOUNG. EXAMINATION GENERAL EXAMINATION: PATIENT IS ALERT O X 3 AND COOPERATIVE. TENDERNESS IN THE LOW BACK, THORACIC, AND CERVICAL AREAS. MRI OF THE LUMBAR SPINE DONE ON 05/21/2017 SHOWS POST LAMINECTOMY CHANGES. ASSESSMENTS LUMBAR POST-LAMINECTOMY SYNDROME - M96.1 (PRIMARY) TREATMENT LUMBAR POST-LAMINECTOMY SYNDROME REFILL PERCOCET TABLET, 5-325 MG, 1 TABLET NEEDED, ORALLY FOR PAIN, DAILY, 30 DAY(S), 30 TABLET, REFILLS 0 CLINICAL NOTES: WE DISCUSSED SEVERAL ISSUES WITH MRS. OLMEDO'S PAIN MANAGEMENT CASE. I WOULD LIKE THE PATIENT TO START USING CYMBALTA FOR THE MUSCULOSKELETAL PAIN. THE PATIENT WILL CONTINUE USING THE OXYCODONE 1 TABLET PER DAY FOR THE SOMATIC PAIN. THE PATIENT WILL SIGN A NARCOTIC AGREEMENT TODAY AND PERFORM A URINE TOXICOLOGY. ISTOP _#[id number] WAS REVIEWED. THE PATIENT WILL FOLLOW UP IN 3 WEEKS. INSTRUCTIONS WERE GIVEN, QUESTIONS WERE ANSWERED, PATIENT REPORTS UNDERSTANDING AND AGREES WITH THE PLAN. I, GOOD EMERY, DOCUMENTED THE ABOVE INFORMATION ACTING A SCRIBE FOR DR. SOFIA. I HAVE REVIEWED THE ABOVE DOCUMENT, WRITTEN BY GOOD TEMPLEIBShayy AND I VERIFY THAT IT IS ACCURATE. . OTHERS START CYMBALTA CAPSULE DELAYED RELEASE PARTICLES, 30 MG, 1 CAPSULE, ORALLY FOR PAIN, ONCE A DAY, 30 DAY(S), 30, REFILLS 1 PROCEDURE CODES FA211 ESTABILISHED PATIENT [facility] FACILITY CHARGE A0811 CURRENT MEDS W/DOSAGES DOCUMENTED G8006 PAIN ASSESS POS TOOL F/U PLAN DOC DISPOSITION & COMMUNICATION FOLLOW UP 3 WEEKS ELECTRONICALLY SIGNED BY GERALDO SOFIA MD, MD ON 09/05/2018 AT 05:33 PM EDT DISCLAIMER : THIS IS A VISIT SUMMARY EXTRACTED FROM THE [facility]. IT IS NOT A COPY OF THE [email or web address] PROGRESS NOTE. MTDD
== END ==
LOC: M PAIN 12:15
PROVIDERS: ATTEND Anesthesiology
DX: M96.1 Postlaminectomy syndrome, not elsewhere classified (principal); J45.909 Unspecified asthma, uncomplicated; I10 Essential (primary) hypertension; F17.290 Nicotine dependence, other tobacco product, uncomplicated; Z79.51 Long term (current) use of inhaled steroids; Z79.899 Other long term (current) drug therapy

== ENCOUNTER → 2018-09-15 | Outpatient (CLI) | payer OTHER ==
[~2018-09-15] MED LIST changes: +KETO10TAB PO
--- NOTE | 2018-09-15 13:41 | REP ---
Clinical: Arthralgia Technique: AP, lateral, bilateral oblique and sunrise views right knee. Findings: The osseous structures and joint spaces are intact and normal. There is no evidence for acute fracture or dislocation. No joint effusion is appreciated. Surrounding soft tissues are unremarkable. No subcutaneous emphysema or radiodense foreign body. Impression: Normal examination. No acute fracture or dislocation. Electronically Signed by Yash Vo MD 09/15/2018 01:32 P
== END ==
LOC: M RAD 11:56
PROVIDERS: ATTEND Physician Assistant Medical
DX: M25.561 Pain in right knee (principal)

== ENCOUNTER 2018-09-21 23:21 | Emergency (ER) | payer OTHER ==
[~2018-09-21] VITALS: Ht 157.5 cm; Wt 86.8 kg
[~2018-09-21 23:21] MED LIST changes: -KETO10TAB PO
[2018-09-21 23:22] VITALS: BP 153/102
[2018-09-22] MEDS ORDERED: KETO10TAB PO (01:00)
[2018-09-22] MEDS ORDERED: KETOROLAC TROMETHAMINE 10 MG TAB PO ONE (01:00)
== END 2018-09-22 01:08 | disposition home or self-care (01) ==
LOC: M ED 23:21
DX: M25.561 Pain in right knee (principal); M25.562 Pain in left knee; I10 Essential (primary) hypertension; J45.909 Unspecified asthma, uncomplicated; F33.9 Major depressive disorder, recurrent, unspecified; M54.9 Dorsalgia, unspecified; Z79.899 Other long term (current) drug therapy

== ENCOUNTER 2018-12-23 12:15 | Emergency (ER) | payer OTHER ==
[~2018-12-23] VITALS: Ht 157.5 cm; Wt 84.7 kg
[~2018-12-23 12:15] MED LIST changes: +KETO10TAB PO
[2018-12-23] MEDS ORDERED: PERC5TAB12 PO (15:48)
[2018-12-23 15:53] VITALS: BP 140/86
[2018-12-23] MEDS ORDERED: KETOROLAC 60 MG/2 ML VIAL (J1885) IM ONE (16:00)
== END 2018-12-23 16:03 | disposition home or self-care (01) ==
LOC: M ED 12:15
DX: Z76.0 Encounter for issue of repeat prescription (principal); M43.26 Fusion of spine, lumbar region; M54.9 Dorsalgia, unspecified; Z79.51 Long term (current) use of inhaled steroids; Z79.899 Other long term (current) drug therapy
CPT/HCPCS: 96372; 99283; J1885

== ENCOUNTER → 2018-12-24 | Outpatient (CLI) | payer OTHER ==
[~2018-12-24] MED LIST changes: +GABA-843; +PERC5TAB12 PO; +TIZA4TAB4
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
== END ==
LOC: M PAIN 10:00
PROVIDERS: ATTEND Nurse Practitioner Family
DX: M46.1 Sacroiliitis, not elsewhere classified (principal); G89.29 Other chronic pain; J45.909 Unspecified asthma, uncomplicated; I10 Essential (primary) hypertension; K21.9 Gastro-esophageal reflux disease without esophagitis; F17.290 Nicotine dependence, other tobacco product, uncomplicated; Z79.51 Long term (current) use of inhaled steroids; Z79.899 Other long term (current) drug therapy

== ENCOUNTER 2019-01-05 17:27 | Emergency (ER) | payer OTHER ==
[~2019-01-05] VITALS: Ht 157.5 cm; Wt 86.3 kg
[~2019-01-05 17:27] MED LIST changes: -GABA-843; -TIZA4TAB4
[2019-01-05] MEDS ORDERED: GABA-843 (17:33)
[2019-01-05] MEDS ORDERED: TIZA4TAB4 (17:33)
[2019-01-05] MEDS ORDERED: tiZANidine 4 MG TAB PO ONE (18:15)
[2019-01-05] MEDS ORDERED: GABAPENTIN 300 MG CAP PO ONE (18:15)
[2019-01-05] MEDS ORDERED: ACETAMINOPHEN 325 MG TAB PO ONE (18:15)
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
[2019-01-05 20:05] VITALS: BP 130/83
== END 2019-01-05 20:14 | disposition home or self-care (01) ==
LOC: M ED 17:27
DX: S16.1XXA Strain of muscle, fascia and tendon at neck level, initial encounter (principal); Z79.899 Other long term (current) drug therapy; V89.2XXA Person injured in unspecified motor-vehicle accident, traffic, initial encounter; M51.26 Other intervertebral disc displacement, lumbar region; S70.00XA Contusion of unspecified hip, initial encounter; Z98.1 Arthrodesis status

== ENCOUNTER 2019-02-16 10:54 | Emergency (ER) | payer OTHER ==
[~2019-02-16] VITALS: Ht 157.5 cm; Wt 88.6 kg
[~2019-02-16 10:54] MED LIST changes: -BUPIVACAINE HCL 0.25% 30 ML VIAL As Ordered ONE; -EPINEPHrine 1MG/10ML SYRINGE 1.5IN ONE; -EPINEPHrine INJ 1 MG/ML 1ML AMP As Ordered ONE; -ISOVUE-M 300 61% 15ML VIAL (Q9967) As Ordered ONE; -LIDOCAINE 1% SDV INJ 30 ML VIAL As Ordered ONE; -PRED20TA PO; -TRIAMCINOLONE ACETONIDE SUSP 40 MG/ML VIAL (J3301) As Ordered ONE; -diazePAM 5 MG TAB As Ordered ONE; -diphenhydrAMINE INJ 50MG/ML VIAL (J1200) As Ordered ONE; -oxyCODONE 5MG TAB As Ordered ONE
[2019-02-16] MEDS ORDERED: FAMOTIDINE INJ 20MG/2ML VIAL (S0028) As Ordered ONE (10:59)
[2019-02-16] MEDS ORDERED: methylPREDNISolone INJ 125 MG/2 ML VIAL (J2930) As Ordered ONE (10:59)
[2019-02-16] MEDS ORDERED: methylPREDNISolone INJ 125 MG/2 ML VIAL (J2930) IV ONE (12:00)
[2019-02-16] MEDS ORDERED: FAMOTIDINE INJ 20MG/2ML VIAL (S0028) IVP ONE (12:00)
[2019-02-16] MEDS ORDERED: PRED20TA PO (13:35)
[2019-02-16 13:49] VITALS: BP 137/87
== END 2019-02-16 14:02 | disposition home or self-care (01) ==
LOC: M ED 10:54
DX: T42.4X5A Adverse effect of benzodiazepines, initial encounter (principal); Y92.531 Health care provider office as the place of occurrence of the external cause; Y93.89 Activity, other specified; I10 Essential (primary) hypertension; J45.909 Unspecified asthma, uncomplicated; J44.9 Chronic obstructive pulmonary disease, unspecified; M54.9 Dorsalgia, unspecified; Z87.891 Personal history of nicotine dependence; M43.26 Fusion of spine, lumbar region; Z79.899 Other long term (current) drug therapy; Z88.8 Allergy status to other drugs, medicaments and biological substances
CPT/HCPCS: 96374; 96375; 99284; J2930

== ENCOUNTER → 2019-02-16 | Outpatient (CLI) | payer OTHER ==
[~2019-02-16] MED LIST changes: +BUPIVACAINE HCL 0.25% 30 ML VIAL As Ordered ONE; +EPINEPHrine 1MG/10ML SYRINGE 1.5IN ONE; +EPINEPHrine INJ 1 MG/ML 1ML AMP As Ordered ONE; +GABA-843; +ISOVUE-M 300 61% 15ML VIAL (Q9967) As Ordered ONE; +LIDOCAINE 1% SDV INJ 30 ML VIAL As Ordered ONE; +PRED20TA PO; +TIZA4TAB4; +TRIAMCINOLONE ACETONIDE SUSP 40 MG/ML VIAL (J3301) As Ordered ONE; +diazePAM 5 MG TAB As Ordered ONE; +diphenhydrAMINE INJ 50MG/ML VIAL (J1200) As Ordered ONE; +oxyCODONE 5MG TAB As Ordered ONE
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
== END ==
LOC: M PAIN 09:30
PROVIDERS: ATTEND Anesthesiology
DX: R21 Rash and other nonspecific skin eruption (principal); T40.2X5A Adverse effect of other opioids, initial encounter; T42.4X5A Adverse effect of benzodiazepines, initial encounter
CPT/HCPCS: 96374; J1200; J3301

== ENCOUNTER 2019-02-17 12:14 | Emergency (ER) | payer OTHER ==
[~2019-02-17] VITALS: Ht 157.5 cm; Wt 84.1 kg
[~2019-02-17 12:14] MED LIST changes: +PRED20TA PO
[2019-02-17 13:35] LABS: HEMATOCRIT 39.3 % (36.0-47.0); HEMOGLOBIN 13.1 g/dl (12.0-15.5); MEAN CORPUSCULAR HEMOGLOBIN 29.6 pg (27.0-33.0); MEAN CORPUSCULAR HGB CONC 33.3 g/dl (32.0-36.5); MEAN CORPUSCULAR VOLUME 88.7 fl (80.0-96.0); PLATELET COUNT, AUTOMATED 258 10^3/uL (150-450); RED BLOOD COUNT 4.43 10^6/uL (4.00-5.40); WHITE BLOOD COUNT 21.2 10^3/uL (4.0-10.0)
--- NOTE | 2019-02-17 13:48 | REP ---
CT lumbar spine: Indication: Lower extremity weakness. Comparison: 01/05/2019. Technique: Unenhanced axial CT images of the lumbar spine were obtained with coronal and sagittal reconstructions provided. Findings: There is no acute fracture, subluxation or dislocation. Postoperative sequelae are present with L4 and L5 laminectomies and posterior instrument effusion extending from L4-S1. The hardware appears intact without evidence of loosening. No severe areas of spinal canal narrowing are detected. No significant paraspinal soft tissue abnormalities are detected. Impression: No acute osseous injury of the postoperative lumbar spine. Electronically Signed by Frank Spain DO 02/17/2019 01:39 P
[2019-02-17 14:02] LABS: BLOOD UREA NITROGEN 9 MG/DL (7-18); C REACTIVE PROTEIN QUANTITATIV 0.53 MG/DL (0.00-0.30); CALCIUM LEVEL 8.8 MG/DL (8.5-10.1); CARBON DIOXIDE LEVEL 28 MEQ/L (21-32); CHLORIDE LEVEL 108 MEQ/L (98-107); CREATININE FOR GFR 0.65 MG/DL (0.55-1.30); GLOMERULAR FILTRATION RATE > 60.0 (>60); GLUCOSE, FASTING 127 MG/DL (70-100); MAGNESIUM LEVEL 1.9 MG/DL (1.8-2.4); POTASSIUM SERUM 3.8 MEQ/L (3.5-5.1); SODIUM LEVEL 140 MEQ/L (136-145)
[2019-02-17 16:38] VITALS: BP 141/82
== END 2019-02-17 16:56 | disposition home or self-care (01) ==
LOC: M ED 12:14
DX: G89.29 Other chronic pain (principal); M54.5 Low back pain; I10 Essential (primary) hypertension; J45.909 Unspecified asthma, uncomplicated; J44.9 Chronic obstructive pulmonary disease, unspecified; K21.9 Gastro-esophageal reflux disease without esophagitis; Z87.891 Personal history of nicotine dependence; Z79.899 Other long term (current) drug therapy; Z88.8 Allergy status to other drugs, medicaments and biological substances

== ENCOUNTER → 2019-03-22 | Outpatient (CLI) | payer OTHER ==
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
== END ==
LOC: M PAIN 11:15
PROVIDERS: ATTEND Nurse Practitioner Family
DX: M46.1 Sacroiliitis, not elsewhere classified (principal); I10 Essential (primary) hypertension; Z79.891 Long term (current) use of opiate analgesic; Z79.899 Other long term (current) drug therapy; Z87.891 Personal history of nicotine dependence

== ENCOUNTER → 2019-05-13 | Outpatient (CLI) | payer OTHER ==
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
== END ==
LOC: M PAIN 09:15
PROVIDERS: ATTEND Anesthesiology
DX: M96.1 Postlaminectomy syndrome, not elsewhere classified (principal); M51.16 Intervertebral disc disorders with radiculopathy, lumbar region; J45.909 Unspecified asthma, uncomplicated; I10 Essential (primary) hypertension; F17.290 Nicotine dependence, other tobacco product, uncomplicated; Z88.5 Allergy status to narcotic agent; Z79.51 Long term (current) use of inhaled steroids; Z79.899 Other long term (current) drug therapy

== ENCOUNTER → 2020-02-28 | Outpatient (CLI) | payer OTHER ==
[~2020-02-28] MED LIST changes: +AMLO1TAB24 PO; -AMLO5TAB6 PO; -LIDO1SOL8 MT; +LIDO2SOL17 MT; -MONT10TA2; +MONT10TA4
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
== END ==
LOC: M PAIN 10:45
PROVIDERS: ATTEND Nurse Practitioner Family
DX: M46.1 Sacroiliitis, not elsewhere classified (principal); M96.1 Postlaminectomy syndrome, not elsewhere classified; J45.909 Unspecified asthma, uncomplicated; I10 Essential (primary) hypertension; F17.290 Nicotine dependence, other tobacco product, uncomplicated; Z88.5 Allergy status to narcotic agent; Z79.51 Long term (current) use of inhaled steroids; Z79.899 Other long term (current) drug therapy

== ENCOUNTER → 2020-03-28 | Outpatient (REF) | payer OTHER ==
[~2020-03-28] MED LIST changes: -MONT10TA4; +MONT5TAB2
[2020-03-28 17:35] LABS: BASO % 0.2 % (0.0-1.0); EOS # 0.1 10^3/uL (0.0-0.5); HEMATOCRIT 39.9 % (36.0-47.0); HEMOGLOBIN 12.7 g/dl (12.0-15.5); LYMPH # 3.3 10^3/uL (1.5-5.0); LYMPH % 36.4 % (24.0-44.0); MEAN CORPUSCULAR HEMOGLOBIN 29.1 pg (27.0-33.0); MEAN CORPUSCULAR HGB CONC 31.8 g/dl (32.0-36.5); MEAN CORPUSCULAR VOLUME 91.3 fl (80.0-96.0); MONO # 0.8 10^3/uL (0.0-0.8); MONO % 8.5 % (0.0-5.0); NEUTROPHILS # 4.9 10^3/uL (1.5-8.5); NEUTROPHILS % 53.7 % (36.0-66.0); PLATELET COUNT, AUTOMATED 279 10^3/uL (150-450); RED BLOOD COUNT 4.37 10^6/uL (4.00-5.40); WHITE BLOOD COUNT 9.1 10^3/uL (4.0-10.0)
[2020-03-28 18:22] LABS: ALBUMIN 3.5 GM/DL (3.2-5.2); ALT/SGPT 20 U/L (12-78); BILIRUBIN,TOTAL 0.2 MG/DL (0.2-1.0); BLOOD UREA NITROGEN 8 MG/DL (7-18); CALCIUM LEVEL 8.6 MG/DL (8.5-10.1); CARBON DIOXIDE LEVEL 28 MEQ/L (21-32); CHLORIDE LEVEL 105 MEQ/L (98-107); CHOLESTEROL LEVEL 163 MG/DL (<200); CHOLESTEROL RISK RATIO 2.859 (<5); CREATININE FOR GFR 0.71 MG/DL (0.55-1.30); GLOMERULAR FILTRATION RATE > 60.0 (>60); GLUCOSE, FASTING 75 MG/DL (70-100); HDL CHOLESTEROL 57 MG/DL (>40); LDL CHOLESTEROL 76 MG/DL (<100); NON-HDL-C 106 MG/DL; POTASSIUM SERUM 3.9 MEQ/L (3.5-5.1); SODIUM LEVEL 137 MEQ/L (136-145); TOTAL PROTEIN 6.7 GM/DL (6.4-8.2); TRIGLYCERIDES LEVEL 151 MG/DL (<150)
== END ==
LOC: M LAB REF 17:08
PROVIDERS: ATTEND Physician Assistant
DX: I10 Essential (primary) hypertension (principal)

== ENCOUNTER → 2020-04-30 | Outpatient (CLI) | payer OTHER ==
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
== END ==
LOC: M PAIN 10:45
PROVIDERS: ATTEND Nurse Practitioner Family
DX: M46.1 Sacroiliitis, not elsewhere classified (principal); G89.29 Other chronic pain; J45.909 Unspecified asthma, uncomplicated; Z87.891 Personal history of nicotine dependence; Z88.5 Allergy status to narcotic agent; Z79.51 Long term (current) use of inhaled steroids; Z79.899 Other long term (current) drug therapy

== ENCOUNTER 2020-08-01 20:42 | Emergency (ER) | payer OTHER ==
[~2020-08-01] VITALS: Ht 157.5 cm; Wt 84.1 kg
[~2020-08-01 20:42] MED LIST changes: +FLOV100A; -FLOV100A3; +GABA-282; -GABA-843; -LISI-542; +LISI-898; +MONT10TA10; -MONT5TAB2
[2020-08-01] MEDS ORDERED: methylPREDNISolone 125MG 2ML VIAL IV ONE (21:25)
[2020-08-01] MEDS ORDERED: IPRATROPIUM 0.5MG/ALBUTEROL 2.5MG INH SOL UD 3ML (DUONEB) NEB ONE (21:25)
[2020-08-01 21:53] LABS: BASO % 0.1 % (0.0-1.0); EOS % 0.5 % (0.0-3.0); HEMATOCRIT 38.4 % (36.0-47.0); HEMOGLOBIN 12.8 g/dl (12.0-15.5); LYMPH # 3.3 10^3/uL (1.5-5.0); LYMPH % 40.9 % (24.0-44.0); MEAN CORPUSCULAR HEMOGLOBIN 30.3 pg (27.0-33.0); MEAN CORPUSCULAR HGB CONC 33.3 g/dl (32.0-36.5); MONO # 0.5 10^3/uL (0.0-0.8); MONO % 6.1 % (2.0-8.0); NEUTROPHILS # 4.2 10^3/uL (1.5-8.5); NEUTROPHILS % 52.2 % (36.0-66.0); PLATELET COUNT, AUTOMATED 237 10^3/uL (150-450); RED BLOOD COUNT 4.22 10^6/uL (4.00-5.40); WHITE BLOOD COUNT 8.1 10^3/uL (4.0-10.0)
[2020-08-01 22:22] LABS: BLOOD UREA NITROGEN 11 MG/DL (7-18); CARBON DIOXIDE LEVEL 30 MEQ/L (21-32); CHLORIDE LEVEL 109 MEQ/L (98-107); CK-MB VALUE MASS 1.5 NG/ML (<3.6); CPK CREATINE PHOSPHOKINASE 104 U/L (26-192); CREATININE FOR GFR 0.68 MG/DL (0.55-1.30); GLOMERULAR FILTRATION RATE > 60.0 (>60); GLUCOSE, FASTING 87 MG/DL (70-100); MB/CK RELATIVE INDEX 1.44 (< OR =4); POTASSIUM SERUM 3.5 MEQ/L (3.5-5.1); SODIUM LEVEL 141 MEQ/L (136-145); TROPONIN I < 0.02 NG/ML (< 0.10)
--- NOTE | 2020-08-01 22:43 | REPVR ---
PROCEDURE INFORMATION: Exam: XR Chest Exam date and time: 08/01/20 (9:45pm) Age: 30 years old Clinical indication: Chest pain TECHNIQUE: Imaging protocol: Portable CXR Views: 1 view COMPARISON: Portable CXR of 03/20/18 FINDINGS: Lungs: Unremarkable. No consolidation. Pleural spaces: Unremarkable. No pleural effusions. No pneumothorax. Heart/Mediastinum: Unremarkable. No cardiomegaly. Bones/joints: Unremarkable. IMPRESSION: No acute findings. The lung song remain clear. Electronically signed by: Sherry Pickering On 08/01/2020 22:43:30 PM
[2020-08-01 23:45] VITALS: BP 117/67
[2020-08-02] MEDS ORDERED: PRED20TA PO (00:02)
--- NOTE | 2020-08-02 01:37 | ECGEPIP ---
[facility] - ED Test Date: 2020-08-01 Pat Name: NEGAR OLMEDO Department: Room: - Gender: Female Investigation Division Lieutenant: : 1990 Requested By: CHIP Lott Order Number: [id number] Reading MD: Sang Andino Measurements Intervals [place] Rate: 62 P: 57 IA: 160 QRS: 40 QRSD: 96 T: 30 QT: 408 QTc: 414 Interpretive Statements Normal sinus rhythm POSSIBLE INCOMPLETE RIGHT BUNDLE BRANCH BLOCK SIMILAR TO 11/13/17 Electronically Signed on 08-02-2020 1:37:08 EDT by Sang Andino
== END 2020-08-02 00:34 | disposition home or self-care (01) ==
LOC: M ED 20:42
DX: R07.89 Other chest pain (principal); J45.901 Unspecified asthma with (acute) exacerbation; I10 Essential (primary) hypertension; Z88.8 Allergy status to other drugs, medicaments and biological substances; Z79.51 Long term (current) use of inhaled steroids; Z79.899 Other long term (current) drug therapy
CPT/HCPCS: 71045; 80048; 82550; 82553; 85025; 93005; 93041; 94760; 96374; 99285; J2930

== ENCOUNTER 2020-10-12 19:30 | Emergency (ER) | payer OTHER ==
[~2020-10-12] VITALS: Ht 157.5 cm; Wt 81.3 kg
--- NOTE | 2020-10-12 21:14 | REPVR ---
PROCEDURE INFORMATION: Exam: XR Left Ankle Exam date and time: 10/12/2020 8:11 PM Age: 30 years old Clinical indication: Pain; Ankle; Left; Additional info: Injury TECHNIQUE: Imaging protocol: XR Left ankle. Views: 3 or more views. COMPARISON: CR Tibia, Fibula lower leg 01/15/2017 10:41 AM FINDINGS: Bones/joints: There is no fracture or dislocation. The ankle mortise is symmetric. The joint spaces are preserved. No arthropathy is noted. Soft tissues: Unremarkable. IMPRESSION: No fracture or dislocation of the left ankle. Electronically signed by: Jacobo Santo On 10/12/2020 21:13:24 PM
[2020-10-12] MEDS ORDERED: ACETAMINOPHEN 325 MG TAB PO ONE (21:25)
--- NOTE | 2020-10-12 21:45 | REPVR ---
PROCEDURE INFORMATION: Exam: XR Left Foot Exam date and time: 10/12/2020 9:37 PM Age: 30 years old Clinical indication: Fell off stairs TECHNIQUE: Imaging protocol: XR Left foot. Views: 3 or more views. COMPARISON: CR Ankle, complete LEFT 10/12/2020 7:57 PM FINDINGS: Bones/joints: There is no fracture or dislocation. The Lisfranc alignment is maintained. The joint spaces are preserved. No arthropathy is noted. Soft tissues: Unremarkable. IMPRESSION: No fracture or dislocation of the left foot. Electronically signed by: Jacobo Santo On 10/12/2020 21:44:17 PM
[2020-10-12 22:42] VITALS: BP 164/103
== END 2020-10-12 22:48 | disposition home or self-care (01) ==
LOC: M ED 19:30
DX: S93.402A Sprain of unspecified ligament of left ankle, initial encounter (principal); S90.32XA Contusion of left foot, initial encounter; Y30.XXXA Falling, jumping or pushed from a high place, undetermined intent, initial encounter; Y92.019 Unspecified place in single-family (private) house as the place of occurrence of the external cause; Y93.9 Activity, unspecified; Y99.9 Unspecified external cause status; I10 Essential (primary) hypertension; M54.5 Low back pain; J45.909 Unspecified asthma, uncomplicated; Z88.8 Allergy status to other drugs, medicaments and biological substances; Z79.899 Other long term (current) drug therapy

== ENCOUNTER → 2021-12-13 | Outpatient (CLI) | payer OTHER ==
[~2021-12-13] MED LIST changes: -LISI-898; +LISI5TAB11; -MONT10TA10; +MONT10TA97; +TIZA10TA; -TIZA4TAB4
[2021-12-13 15:28] LABS: BASO % 0.3 % (0.0-1.0); EOS % 0.4 % (0.0-3.0); HEMATOCRIT 39.8 % (36.0-47.0); HEMOGLOBIN 13.3 g/dl (12.0-15.5); LYMPH # 2.3 10^3/uL (1.5-5.0); LYMPH % 32.1 % (24.0-44.0); MEAN CORPUSCULAR HEMOGLOBIN 29.8 pg (27.0-33.0); MEAN CORPUSCULAR HGB CONC 33.4 g/dl (32.0-36.5); MONO # 0.5 10^3/uL (0.0-0.8); MONO % 6.8 % (2.0-8.0); NEUTROPHILS # 4.2 10^3/uL (1.5-8.5); PLATELET COUNT, AUTOMATED 272 10^3/uL (150-450); RED BLOOD COUNT 4.47 10^6/uL (4.00-5.40)
[2021-12-13 15:41] LABS: HCG, SERUM QUALITATIVE POSITIVE (NEGATIVE)
[2021-12-13 16:14] LABS: ALBUMIN 3.5 GM/DL (3.2-5.2); ALT/SGPT 27 U/L (12-78); BILIRUBIN,TOTAL 0.4 MG/DL (0.2-1.0); BLOOD UREA NITROGEN 6 MG/DL (7-18); CARBON DIOXIDE LEVEL 26 MEQ/L (21-32); CHLORIDE LEVEL 104 MEQ/L (98-107); CREATININE FOR GFR 0.65 MG/DL (0.55-1.30); GLOMERULAR FILTRATION RATE > 60.0 (>60); GLUCOSE, FASTING 113 MG/DL (70-100); HCG, SERUM QUANTITATIVE 25256 MIU/ML; POTASSIUM SERUM 3.7 MEQ/L (3.5-5.1); SODIUM LEVEL 136 MEQ/L (136-145); TOTAL PROTEIN 6.8 GM/DL (6.4-8.2)
== END ==
LOC: M PLALAB 12:28
PROVIDERS: ATTEND Physician Assistant Medical
DX: I10 Essential (primary) hypertension (principal); Z3A.01 Less than 8 weeks gestation of pregnancy

== ENCOUNTER 2021-12-29 18:24 | Emergency (ER) | payer OTHER ==
[~2021-12-29] VITALS: Ht 157.5 cm; Wt 84.8 kg
[2021-12-29] MEDS ORDERED: LABE100T6 (18:37)
[2021-12-29 21:40] LABS: BASO % 0.2 % (0.0-1.0); EOS # 0.1 10^3/uL (0.0-0.5); EOS % 0.6 % (0.0-3.0); HEMOGLOBIN 12.6 g/dl (12.0-15.5); LYMPH # 2.8 10^3/uL (1.5-5.0); LYMPH % 27.7 % (24.0-44.0); MEAN CORPUSCULAR HEMOGLOBIN 29.4 pg (27.0-33.0); MEAN CORPUSCULAR HGB CONC 33.2 g/dl (32.0-36.5); MEAN CORPUSCULAR VOLUME 88.6 fl (80.0-96.0); MONO # 0.6 10^3/uL (0.0-0.8); MONO % 6.1 % (2.0-8.0); NEUTROPHILS # 6.7 10^3/uL (1.5-8.5); NEUTROPHILS % 65.2 % (36.0-66.0); PLATELET COUNT, AUTOMATED 247 10^3/uL (150-450); RED BLOOD COUNT 4.29 10^6/uL (4.00-5.40); WHITE BLOOD COUNT 10.2 10^3/uL (4.0-10.0)
[2021-12-29 22:02] LABS: APPEARANCE, URINE MANUAL CLEAR (CLEAR); BILIRUBIN, URINE MANUAL NEGATIVE (NEGATIVE); BLOOD URINE MANUAL NEGATIVE (NEGATIVE); COLOR, URINE MANUAL YELLOW (YELLOW); GLUCOSE, URINE (UA) MANUAL NEGATIVE (NEGATIVE); KETONE, URINE MANUAL NEGATIVE (NEGATIVE); LEUKOCYTE ESTERASE, URINE MAN NEGATIVE (NEGATIVE); NITRITE, URINE MANUAL NEGATIVE (NEGATIVE); PROTEIN, URINE MANUAL NEGATIVE (NEGATIVE); SPECIFIC GRAVITY,URINE MANUAL 1.015 (1.002-1.035); UROBILINOGEN, URINE MANUAL NORMAL (NORMAL)
[2021-12-29 22:42] VITALS: BP 120/60
== END 2021-12-29 22:51 | disposition home or self-care (01) ==
LOC: M ED 18:24
DX: O26.851 Spotting complicating pregnancy, first trimester (principal); I10 Essential (primary) hypertension; J45.909 Unspecified asthma, uncomplicated; Z88.8 Allergy status to other drugs, medicaments and biological substances; Z79.51 Long term (current) use of inhaled steroids; Z79.899 Other long term (current) drug therapy

== ENCOUNTER → 2022-01-17 | Outpatient (REF) | payer OTHER ==
[~2022-01-17] MED LIST changes: +LABE100T6
[2022-01-17 17:46] LABS: HEMOGLOBIN 12.5 g/dl (12.0-15.5); MEAN CORPUSCULAR HEMOGLOBIN 29.7 pg (27.0-33.0); MEAN CORPUSCULAR HGB CONC 33.8 g/dl (32.0-36.5); MEAN CORPUSCULAR VOLUME 87.9 fl (80.0-96.0); PLATELET COUNT, AUTOMATED 285 10^3/uL (150-450); RED BLOOD COUNT 4.21 10^6/uL (4.00-5.40); WHITE BLOOD COUNT 9.2 10^3/uL (4.0-10.0)
[2022-01-17 18:22] LABS: ALT/SGPT 20 U/L (12-78); BILIRUBIN,TOTAL 0.2 MG/DL (0.2-1.0); CREATININE FOR GFR 0.54 MG/DL (0.55-1.30); GLOMERULAR FILTRATION RATE > 60.0 (>60); LDH LACTATE DEHYDROGENASE 147 U/L (84-246); URIC ACID 3.5 MG/DL (2.6-6.0)
[2022-01-17 19:29] LABS: HEPATITIS C VIRUS ABY INDEX < 0.0 INDEX (<0.8); HIV 1&2 SCREEN CENTAUR NEGATIVE (NEGATIVE)
== END ==
LOC: M PLALAB 16:46
PROVIDERS: ATTEND Advanced Practice Midwife
DX: Z34.91 Encounter for supervision of normal pregnancy, unspecified, first trimester (principal); Z3A.00 Weeks of gestation of pregnancy not specified

== ENCOUNTER → 2022-02-12 | Outpatient (REF) | payer OTHER ==
[2022-02-12 20:07] LABS: APPEARANCE, URINE MANUAL CLOUDY (CLEAR)
[2022-02-12 20:08] LABS: BILIRUBIN, URINE MANUAL NEGATIVE (NEGATIVE); BLOOD URINE MANUAL NEGATIVE (NEGATIVE); COLOR, URINE MANUAL YELLOW (YELLOW); GLUCOSE, URINE (UA) MANUAL NEGATIVE (NEGATIVE); KETONE, URINE MANUAL NEGATIVE (NEGATIVE); LEUKOCYTE ESTERASE, URINE MAN POSITIVE (NEGATIVE); NITRITE, URINE MANUAL NEGATIVE (NEGATIVE); PROTEIN, URINE MANUAL TRACE mg/dL (NEGATIVE); UROBILINOGEN, URINE MANUAL NORMAL (NORMAL)
[2022-02-12 20:46] LABS: WBC, URINE 20-30 /hpf (0-3)
[2022-02-12 20:47] LABS: BACTERIA, URINE LARGE AMOUNT; SQUAMOUS EPITHELIAL CELL URINE MOD AMOUNT /hpf (SMALL AMT); YEAST, URINE MOD AMOUNT
== END ==
LOC: M SFHCWAGY 16:47
PROVIDERS: ATTEND Obstetrics & Gynecology
DX: R30.0 Dysuria (principal)

== ENCOUNTER 2022-02-23 13:20 | Emergency (ER) | payer OTHER ==
[~2022-02-23] VITALS: Ht 157.5 cm; Wt 84.5 kg
[2022-02-23] MEDS ORDERED: ACE65ERTAB PO (13:38)
[2022-02-23 14:46] LABS: BASO % 0.2 % (0.0-1.0); EOS # 0.1 10^3/uL (0.0-0.5); EOS % 0.7 % (0.0-3.0); HEMATOCRIT 32.2 % (36.0-47.0); HEMOGLOBIN 10.7 g/dl (12.0-15.5); LYMPH # 2.4 10^3/uL (1.5-5.0); LYMPH % 24.3 % (24.0-44.0); MEAN CORPUSCULAR HEMOGLOBIN 29.3 pg (27.0-33.0); MEAN CORPUSCULAR HGB CONC 33.2 g/dl (32.0-36.5); MEAN CORPUSCULAR VOLUME 88.2 fl (80.0-96.0); MONO # 0.8 10^3/uL (0.0-0.8); MONO % 8.1 % (2.0-8.0); NEUTROPHILS # 6.6 10^3/uL (1.5-8.5); NEUTROPHILS % 66.2 % (36.0-66.0); PLATELET COUNT, AUTOMATED 253 10^3/uL (150-450); RED BLOOD COUNT 3.65 10^6/uL (4.00-5.40); WHITE BLOOD COUNT 9.9 10^3/uL (4.0-10.0)
[2022-02-23 15:32] VITALS: BP 118/62
[2022-02-23 16:02] LABS: BLOOD UREA NITROGEN 5 MG/DL (7-18); CALCIUM LEVEL 8.7 MG/DL (8.5-10.1); CARBON DIOXIDE LEVEL 25 MEQ/L (21-32); CHLORIDE LEVEL 106 MEQ/L (98-107); CREATININE FOR GFR 0.53 MG/DL (0.55-1.30); GLOMERULAR FILTRATION RATE > 60.0 (>60); GLUCOSE, FASTING 94 MG/DL (70-100); HCG, SERUM QUANTITATIVE 16105 MIU/ML; POTASSIUM SERUM 3.5 MEQ/L (3.5-5.1); SODIUM LEVEL 138 MEQ/L (136-145)
== END 2022-02-23 15:37 | disposition home or self-care (01) ==
LOC: M ED 13:20 → EDBD 13:20 → M ED 15:37
DX: O23.592 Infection of other part of genital tract in pregnancy, second trimester (principal); N89.8 Other specified noninflammatory disorders of vagina; J45.909 Unspecified asthma, uncomplicated; I10 Essential (primary) hypertension; M54.50 Low back pain, unspecified; Z3A.18 18 weeks gestation of pregnancy; Z88.8 Allergy status to other drugs, medicaments and biological substances

== ENCOUNTER → 2022-03-04 | Outpatient (CLI) | payer OTHER ==
[~2022-03-04] MED LIST changes: +ACE65ERTAB PO
== END ==
LOC: M WHC 10:18
PROVIDERS: ATTEND Obstetrics & Gynecology
DX: Z34.92 Encounter for supervision of normal pregnancy, unspecified, second trimester (principal)

== ENCOUNTER → 2022-03-31 | Outpatient (REF) | payer OTHER ==
[2022-03-31 19:23] LABS: CREATININE,RANDOM URINE 33.8 MG/DL
[2022-03-31 20:55] LABS: GC DNA AMPLIFICATION NEGATIVE (NEGATIVE)
== END ==
LOC: M SFHCWAGY 16:54
PROVIDERS: ATTEND Advanced Practice Midwife
DX: Z34.91 Encounter for supervision of normal pregnancy, unspecified, first trimester (principal); Z3A.00 Weeks of gestation of pregnancy not specified

== ENCOUNTER → 2022-04-02 | Outpatient (CLI) | payer OTHER | LOC: M WHC 10:10 | PROVIDERS: ATTEND Obstetrics & Gynecology | DX: O10.912 Unspecified pre-existing hypertension complicating pregnancy, second trimester (principal); Z3A.23 23 weeks gestation of pregnancy ==

== ENCOUNTER → 2022-05-07 | Outpatient (CLI) | payer OTHER ==
[2022-05-07 12:22] LABS: HEMATOCRIT 29.8 % (36.0-47.0); HEMOGLOBIN 9.7 g/dl (12.0-15.5); MEAN CORPUSCULAR HEMOGLOBIN 29.6 pg (27.0-33.0); MEAN CORPUSCULAR HGB CONC 32.6 g/dl (32.0-36.5); MEAN CORPUSCULAR VOLUME 90.9 fl (80.0-96.0); PLATELET COUNT, AUTOMATED 256 10^3/uL (150-450); RED BLOOD COUNT 3.28 10^6/uL (4.00-5.40); WHITE BLOOD COUNT 9.8 10^3/uL (4.0-10.0)
== END ==
LOC: M PLALAB 08:26
PROVIDERS: ATTEND Advanced Practice Midwife
DX: Z36.89 Encounter for other specified antenatal screening (principal); Z3A.23 23 weeks gestation of pregnancy

== ENCOUNTER → 2022-05-14 | Outpatient (REF) | payer OTHER | LOC: M PLALAB 11:37 | PROVIDERS: ATTEND Obstetrics & Gynecology | DX: Z53.9 Procedure and treatment not carried out, unspecified reason (principal) ==

== ENCOUNTER → 2022-05-14 | Outpatient (CLI) | payer OTHER ==
[2022-05-14 13:47] LABS: ALBUMIN 2.4 G/DL (3.2-5.2); ALKALINE PHOSPHATASE 176 U/L (46-116); ALT/SGPT 14 U/L (7.0-40); AST/SGOT 11 U/L (<34); BILIRUBIN,TOTAL 0.4 MG/DL (0.3-1.2); BLOOD UREA NITROGEN 7 MG/DL (9-23); CALCIUM LEVEL 8.5 MG/DL (8.5-10.1); CARBON DIOXIDE LEVEL 25 MMOL/L (20-31); CHLORIDE LEVEL 104 MMOL/L (98-107); CREATININE FOR GFR 0.56 MG/DL (0.55-1.30); GLOMERULAR FILTRATION RATE > 60.0 (>60); GLUCOSE, FASTING 83 MG/DL (60-100); POTASSIUM SERUM 4.1 MMOL/L (3.5-5.1); SODIUM LEVEL 137 MMOL/L (136-145); TOTAL PROTEIN 5.5 G/DL (5.7-8.2)
[2022-05-14 15:13] LABS: APPEARANCE, URINE MANUAL HAZY (CLEAR)
[2022-05-14 15:14] LABS: BILIRUBIN, URINE MANUAL NEGATIVE (NEGATIVE); BLOOD URINE MANUAL NEGATIVE (NEGATIVE); COLOR, URINE MANUAL YELLOW (YELLOW); GLUCOSE, URINE (UA) MANUAL NEGATIVE (NEGATIVE); KETONE, URINE MANUAL NEGATIVE (NEGATIVE); LEUKOCYTE ESTERASE, URINE MAN POSITIVE (NEGATIVE); NITRITE, URINE MANUAL NEGATIVE (NEGATIVE); PROTEIN, URINE MANUAL 1+ mg/dL (NEGATIVE); SPECIFIC GRAVITY,URINE MANUAL 1.005 (1.002-1.035); UROBILINOGEN, URINE MANUAL NORMAL (NORMAL)
[2022-05-14 15:26] LABS: SQUAMOUS EPITHELIAL CELL URINE LARGE AMOUNT /hpf (SMALL AMT); WBC, URINE 30-40 /hpf (0-3)
[2022-05-14 15:27] LABS: BACTERIA, URINE MOD AMOUNT; HYALINE CAST, URINE NONE SEEN /lpf (0-1)
== END ==
LOC: M PLALAB 11:44
PROVIDERS: ATTEND Obstetrics & Gynecology
DX: R10.2 Pelvic and perineal pain (principal)

== ENCOUNTER → 2022-06-12 | Outpatient (CLI) | payer OTHER ==
[~2022-06-12] MED LIST changes: +LIDO15SO4 MT; -LIDO2SOL17 MT
== END ==
LOC: M WHC 14:11
PROVIDERS: ATTEND Obstetrics & Gynecology
DX: O16.9 Unspecified maternal hypertension, unspecified trimester (principal); Z3A.33 33 weeks gestation of pregnancy

== ENCOUNTER 2022-06-21 22:16 | Outpatient (CLI) | payer OTHER ==
[2022-06-21 22:23] VITALS: BP 129/85
== END 2022-06-21 23:04 | disposition home or self-care (01) ==
LOC: M LDO 22:16
PROVIDERS: ATTEND Obstetrics & Gynecology
DX: O26.893 Other specified pregnancy related conditions, third trimester (principal); R10.2 Pelvic and perineal pain; Z3A.35 35 weeks gestation of pregnancy
CPT/HCPCS: 59025; G0463

== ENCOUNTER → 2022-06-25 | Outpatient (REF) | payer OTHER | LOC: M SFHCWAGY 10:15 | PROVIDERS: ATTEND Obstetrics & Gynecology | DX: O22.43 Hemorrhoids in pregnancy, third trimester (principal); Z3A.00 Weeks of gestation of pregnancy not specified ==

== ENCOUNTER 2022-07-09 23:09 | Outpatient (CLI) | payer OTHER ==
[~2022-07-09] VITALS: Ht 152.4 cm; Wt 96.6 kg
[2022-07-09 23:20] VITALS: BP 134/91
[2022-07-09 23:28] VITALS: BP 130/82
[2022-07-10] MEDS ORDERED: IRON18TA PO (11:17)
[2022-07-10] MEDS ORDERED: CYCL-707 PO (11:17)
[2022-07-10] MEDS ORDERED: ONDA4TAB6 PO (11:17)
[2022-07-10] MEDS ORDERED: ECOT81TA5 PO (11:17)
[2022-07-10] MEDS ORDERED: PRENTAB9 PO (11:17)
== END 2022-07-09 23:58 | disposition home or self-care (01) ==
LOC: M LDO 23:09
PROVIDERS: ATTEND Advanced Practice Midwife
DX: O26.893 Other specified pregnancy related conditions, third trimester (principal); R25.2 Cramp and spasm; R10.2 Pelvic and perineal pain; O10.013 Pre-existing essential hypertension complicating pregnancy, third trimester; O09.43 Supervision of pregnancy with grand multiparity, third trimester; O99.513 Diseases of the respiratory system complicating pregnancy, third trimester; J45.909 Unspecified asthma, uncomplicated; Z3A.37 37 weeks gestation of pregnancy
CPT/HCPCS: 59025; G0463

== ENCOUNTER 2022-07-10 10:49 | Inpatient (IN) | payer OTHER ==
[~2022-07-10] VITALS: Ht 157.5 cm; Wt 83.7 kg
[2022-07-10] VITALS (15 sets, daily range): BP systolic 99–180; BP diastolic 57–116
[2022-07-10] MEDS ORDERED: ECOT81TA5 PO (11:17)
[2022-07-10] MEDS ORDERED: IRON18TA PO (11:17)
[2022-07-10] MEDS ORDERED: PRENTAB9 PO (11:17)
[2022-07-10] MEDS ORDERED: CYCL-707 PO (11:17)
[2022-07-10] MEDS ORDERED: ONDA4TAB6 PO (11:17)
[2022-07-10] MEDS: miSOPROStol 50MCG 1/2 TABLET SL SCH ×4 (11:30→21:10)
[2022-07-10] MEDS ORDERED: OXYTOCIN DRIP 30 UNITS in IV 1 EA IV PRN (11:35)
[2022-07-10] MEDS ORDERED: LIDOCAINE 1% MDV 20ML VIAL INFIL PRN (11:35)
[2022-07-10] MEDS ORDERED: HOME MED LIST COMPLETE! XX SCH (12:15)
[2022-07-10 12:25] LABS: HEMATOCRIT 31.6 % (36.0-47.0); HEMOGLOBIN 10.7 g/dl (12.0-15.5); MEAN CORPUSCULAR HEMOGLOBIN 30.5 pg (27.0-33.0); MEAN CORPUSCULAR HGB CONC 33.9 g/dl (32.0-36.5); PLATELET COUNT, AUTOMATED 206 10^3/uL (150-450); RED BLOOD COUNT 3.51 10^6/uL (4.00-5.40); WHITE BLOOD COUNT 7.3 10^3/uL (4.0-10.0)
[2022-07-10] MEDS ORDERED: BUTORPHANOL 2 MG/ML 1ML VIAL IV ONE (13:25)
[2022-07-10] MEDS ORDERED: PROMETHAZINE 25MG/ML 1ML VIAL IV ONE (13:25)
[2022-07-10] MEDS ORDERED: ACETAMINOPHEN 500 MG TAB PO ONE (18:20)
[2022-07-10] MEDS: LABETALOL 100MG TAB PO SCH (22:19)
[2022-07-11] VITALS (57 sets, daily range): BP systolic 106–208; BP diastolic 55–118
[2022-07-11] MEDS ORDERED: BUTORPHANOL 2 MG/ML 1ML VIAL IV ONE ×2 (00:15→08:00)
[2022-07-11] MEDS ORDERED: PROMETHAZINE 25MG/ML 1ML VIAL IV ONE ×2 (00:15→08:00)
[2022-07-11] MEDS: miSOPROStol 50MCG 1/2 TABLET SL SCH (05:17)
[2022-07-11] MEDS: LABETALOL 100MG TAB PO SCH ×2 (08:31→20:18)
[2022-07-11] MEDS ORDERED: IRON27TA2 PO (09:11)
[2022-07-11] MEDS ORDERED: LABE100T71 PO (09:11)
[2022-07-11] MEDS ORDERED: VENTAER INH (09:13)
[2022-07-11] MEDS ORDERED: OXYTOCIN DRIP 30 UNITS in IV 1 EA IV SCH (10:05)
[2022-07-11] MEDS: LR 1,000 ML IV SCH ×3 (10:28→18:36)
[2022-07-11] MEDS ORDERED: diphenhydrAMINE 50MG/ML VIAL IV PRN (10:35)
[2022-07-11] MEDS ORDERED: NALOXONE INJ 0.4MG/1ML VIAL IV PRN (10:35)
[2022-07-11] MEDS ORDERED: ONDANSETRON 4MG 2ML VIAL IV PRN (10:35)
[2022-07-11] MEDS ORDERED: LR 500 ML IV PRN (10:35)
[2022-07-11] MEDS ORDERED: ePHEDrine SULFATE 25 MG/5 ML(5MG/ML) SYRINGE IVP PRN (10:35)
[2022-07-11] MEDS ORDERED: EPIDURAL/PCA KEYS XX PRN (10:35)
[2022-07-11] MEDS: FENTANYL/ROPIVACAINE/NACL BAG 100 ML EPIDURAL SCH ×2 (12:09→20:24)
[2022-07-11] MEDS ORDERED: TRANEXAMIC ACID 100 MG/ML 10ML VIAL As Ordered ONE (21:43)
[2022-07-11] MEDS ORDERED: OXYTOCIN INJ 10UNITS/ML 1ML VIAL As Ordered ONE (21:43)
[2022-07-11] MEDS ORDERED: hydrALAZINE 20MG/ML 1ML VIAL As Ordered ONE (22:19)
[2022-07-11] MEDS ORDERED: hydrALAZINE 20MG/ML 1ML VIAL IV STA ×2 (22:20→23:14)
[2022-07-11] MEDS ORDERED: diphenhydrAMINE 50MG/ML VIAL IV STA (23:37)
[2022-07-12] VITALS (16 sets, daily range): BP systolic 114–188; BP diastolic 68–102
[2022-07-12 00:35] LABS: CORD GAS ABE A -7.1; CORD GAS HCO3 A 19.4 MEQ/L; CORD GAS O2 SAT A 54.1 %; CORD GAS PCO2 A 42.6 mmHg; CORD GAS PH A 7.276 UNITS; CORD GAS PO2 A 23.5 mmHg; CORD GAS SBC A 17.8 MEQ/L; CORD GAS TCO2 A 20.7 MEQ/L
[2022-07-12 00:37] LABS: CORD GAS ABE V -7.4; CORD GAS HCO3 V 17.8 MEQ/L; CORD GAS O2 SAT V 64.6 %; CORD GAS PCO2 V 35.4 mmHg; CORD GAS PH V 7.319 UNITS; CORD GAS PO2 V 26.5 mmHg; CORD GAS SBC V 17.8 MEQ/L; CORD GAS TCO2 V 18.9 MEQ/L
[2022-07-12] MEDS ORDERED: ACETAMINOPHEN 500 MG TAB PO PRN (01:25)
[2022-07-12] MEDS ORDERED: OXYTOCIN DRIP 30 UNITS in IV 1 EA IV SCH (01:25)
[2022-07-12] MEDS ORDERED: ANUSOL HC CREAM 30GM TOP PRN (01:25)
[2022-07-12] MEDS ORDERED: RHOGAM 300MCG (1500IU) INJ IM SCH (01:25)
[2022-07-12] MEDS ORDERED: MOM 30ML SUSPENSION UDC PO PRN (01:25)
[2022-07-12] MEDS ORDERED: DIBUCAINE 1% OINTMENT 30GM TOP PRN (01:25)
[2022-07-12] MEDS ORDERED: OXYTOCIN 30UNITS IN 0.9% NaCl 500ML IV BAG As Ordered ONE (01:27)
[2022-07-12] MEDS: IBUPROFEN 600MG TAB PO PRN ×2 (01:46→20:16)
[2022-07-12] MEDS ORDERED: AMPICILLIN SOD/SULBACTAM SOD 3 GM in D5W MINI-BAG PLUS 100 ML IV ONE (02:15)
[2022-07-12] MEDS: DOCUSATE SODIUM 100MG CAPSULE PO SCH ×2 (08:54→20:16)
[2022-07-12] MEDS: FERROUS SULFATE 325MG TAB PO SCH (08:54)
[2022-07-12] MEDS: PRENATAL VITAMINS CHEWABLE TABLET PO SCH (08:54)
[2022-07-12] MEDS: LABETALOL 100MG TAB PO SCH ×2 (08:55→21:47)
[2022-07-13 06:00] VITALS: BP 102/59
[2022-07-13] MEDS: DOCUSATE SODIUM 100MG CAPSULE PO SCH (08:38)
[2022-07-13] MEDS: IBUPROFEN 600MG TAB PO PRN (08:39)
[2022-07-13] MEDS: PRENATAL VITAMINS CHEWABLE TABLET PO SCH (08:39)
[2022-07-13] MEDS: FERROUS SULFATE 325MG TAB PO SCH (08:40)
[2022-07-13 10:10] VITALS: BP 116/69
[2022-07-13] MEDS: LABETALOL 100MG TAB PO SCH (10:10)
[2022-07-13] MEDS ORDERED: COLA100C5 PO (12:34)
[2022-07-13] MEDS ORDERED: IBUP-1022 PO (12:34)
[2022-07-13] MEDS ORDERED: ACET-683 PO (12:34)
[2022-07-14] MEDS ORDERED: MEASLES,MUMPS,RUBELLA VACCINE INJ (MMR-II) SC.IMMUN ONE (09:00)
== END 2022-07-13 17:45 | disposition home or self-care (01) | DRG 541 ==
LOC: M LDI 10:49 → M OBS 07-12 01:00
PROVIDERS: ADMIT Specialist; ATTEND Specialist
PROC: 3E033VJ Introduction of Other Hormone into Peripheral Vein, Percutaneous Approach (ICD-10-PCS; 2022-07-10)
PROC: 3E0P7VZ Introduction of Hormone into Female Reproductive, Via Natural or Artificial Opening (ICD-10-PCS; 2022-07-10)
PROC: 10E0XZZ Delivery of Products of Conception, External Approach (ICD-10-PCS; principal; 2022-07-12)
PROC: 10907ZC Drainage of Amniotic Fluid, Therapeutic from Products of Conception, Via Natural or Artificial Opening (ICD-10-PCS; 2022-07-12)
PROC: 10D17Z9 Manual Extraction of Products of Conception, Retained, Via Natural or Artificial Opening (ICD-10-PCS; 2022-07-12)
PROC: 0HQ9XZZ Repair Perineum Skin, External Approach (ICD-10-PCS; 2022-07-12)
DX: O14.92 Unspecified pre-eclampsia, second trimester (principal); O72.2 Delayed and secondary postpartum hemorrhage; Z37.0 Single live birth; Z3A.37 37 weeks gestation of pregnancy; Z79.899 Other long term (current) drug therapy; O70.0 First degree perineal laceration during delivery

== ENCOUNTER → 2024-01-25 | Outpatient (CLI) | payer OTHER ==
[~2024-01-25] MED LIST changes: +ACET-683 PO; +COLA100C5 PO; +CYCL-707 PO; +ECOT81TA5 PO; +GABA-1172; -GABA-282; +IRON18TA PO; +IRON27TA2 PO; +LABE100T40 PO; -LIDO15SO4 MT; +LIDO15SO8 MT; +ONDA-282 PO; +PRENTAB9 PO; +VENTAER INH
[2024-01-25 14:00] LABS: HEMATOCRIT 37.6 % (36.0-47.0); HEMOGLOBIN 12.5 g/dl (12.0-15.5); MEAN CORPUSCULAR HEMOGLOBIN 29.6 pg (27.0-33.0); MEAN CORPUSCULAR HGB CONC 33.2 g/dl (32.0-36.5); MEAN CORPUSCULAR VOLUME 89.1 fl (80.0-96.0); PLATELET COUNT, AUTOMATED 270 10^3/uL (150-450); RED BLOOD COUNT 4.22 10^6/uL (4.00-5.40); WHITE BLOOD COUNT 7.6 10^3/uL (4.0-10.0)
[2024-01-25 14:29] LABS: HIV 1&2 SCREEN NEGATIVE (NEGATIVE)
[2024-01-25 14:37] LABS: HEPATITIS C VIRUS ABY INDEX < 0.02 INDEX (<0.8)
[2024-01-25 14:52] LABS: GC DNA AMPLIFICATION NEGATIVE (NEGATIVE)
== END ==
LOC: M PLALAB 09:45
PROVIDERS: ATTEND Specialist
DX: O09.41 Supervision of pregnancy with grand multiparity, first trimester (principal)

== ENCOUNTER → 2024-03-23 | Outpatient (CLI) | payer OTHER | LOC: M PLALAB 15:45 | PROVIDERS: ATTEND Nurse Practitioner Family | DX: Z53.9 Procedure and treatment not carried out, unspecified reason (principal) ==

== ENCOUNTER → 2024-04-15 | Outpatient (CLI) | payer MEDICAID, OTHER | LOC: M WHC 14:09 | PROVIDERS: ATTEND Obstetrics & Gynecology | DX: O32.1XX0 Maternal care for breech presentation, not applicable or unspecified (principal); Z3A.21 21 weeks gestation of pregnancy ==

== ENCOUNTER 2024-05-04 20:45 | Emergency (ER) | payer MEDICAID, OTHER ==
[~2024-05-04] VITALS: Ht 157.5 cm; Wt 86.7 kg
[2024-05-04 20:52] VITALS: BP 138/64; TEMP 97.6; O2SAT 97
[2024-05-04] MEDS ORDERED: OMEP-173 (20:55)
== END 2024-05-04 23:28 | disposition left against medical advice (07) ==
LOC: M ED 20:45 → EDBD 20:45 → M ED 23:28
DX: Z53.21 Procedure and treatment not carried out due to patient leaving prior to being seen by health care provider (principal)

== ENCOUNTER → 2024-06-15 | Outpatient (CLI) | payer OTHER ==
[~2024-06-15] MED LIST changes: +OMEP-173
[2024-06-15 12:46] LABS: HEMATOCRIT 31.8 % (36.0-47.0); HEMOGLOBIN 10.2 g/dl (12.0-15.5); MEAN CORPUSCULAR HEMOGLOBIN 27.6 pg (27.0-33.0); MEAN CORPUSCULAR HGB CONC 32.1 g/dl (32.0-36.5); MEAN CORPUSCULAR VOLUME 86.2 fl (80.0-96.0); PLATELET COUNT, AUTOMATED 290 10^3/uL (150-450); RED BLOOD COUNT 3.69 10^6/uL (4.00-5.40)
[2024-06-15 13:15] LABS: GLUCOSE CHALLENGE TEST 1 HOUR 106 MG/DL (LESS THAN 140)
[2024-06-15 13:39] LABS: HIV 1&2 SCREEN NEGATIVE (NEGATIVE)
[2024-06-15 14:12] LABS: GC DNA AMPLIFICATION NEGATIVE (NEGATIVE)
[2024-06-16 16:09] LABS: IRON (FE) 41 UG/DL (50-170)
[2024-06-16 16:10] LABS: ALBUMIN 2.3 G/DL (3.2-5.2); ALKALINE PHOSPHATASE 223 U/L (35-104); ALT/SGPT 13 U/L (7.0-40); AST/SGOT < 8 U/L (<34); BILIRUBIN,TOTAL 0.4 MG/DL (0.3-1.2); BLOOD UREA NITROGEN 7 MG/DL (9-23); CALCIUM LEVEL 8.1 MG/DL (8.5-10.1); CARBON DIOXIDE LEVEL 24 MMOL/L (20-31); CHLORIDE LEVEL 105 MMOL/L (98-107); CREATININE FOR GFR 0.52 MG/DL (0.55-1.30); GLOMERULAR FILTRATION RATE > 60.0 (>60); POTASSIUM SERUM 3.8 MMOL/L (3.5-5.1); SODIUM LEVEL 137 MMOL/L (136-145)
[2024-06-16 16:13] LABS: FERRITIN 5.2 NG/ML (7.3-270.7)
[2024-06-16 16:34] LABS: GLUCOSE, FASTING 106 MG/DL (60-100)
== END ==
LOC: M PLALAB 09:21
PROVIDERS: ATTEND Obstetrics & Gynecology
DX: Z34.92 Encounter for supervision of normal pregnancy, unspecified, second trimester (principal); Z3A.00 Weeks of gestation of pregnancy not specified

== ENCOUNTER → 2024-07-28 | Outpatient (REF) | payer OTHER | LOC: M SFHCWAGY 10:06 | PROVIDERS: ATTEND Specialist | DX: O10.913 Unspecified pre-existing hypertension complicating pregnancy, third trimester (principal) ==

== ENCOUNTER 2024-07-31 07:22 | Inpatient (IN) | payer OTHER ==
[~2024-07-31] VITALS: Ht 157.5 cm; Wt 88.1 kg
[2024-07-31] VITALS (24 sets, daily range): BP systolic 96–149; BP diastolic 51–92
[2024-07-31] MEDS ORDERED: ASPI81CH33 PO (08:11)
[2024-07-31] MEDS ORDERED: HOME MED LIST COMPLETE! XX SCH (08:15)
[2024-07-31] MEDS: miSOPROStol 50MCG 1/2 TABLET PO PRN (09:17)
[2024-07-31] MEDS: ASPIRIN 81MG ENTERIC TABLET PO SCH (09:17)
[2024-07-31] MEDS: LABETALOL 100MG TAB PO SCH (09:17)
[2024-07-31 09:21] LABS: HEMATOCRIT 30.2 % (36.0-47.0); MEAN CORPUSCULAR HEMOGLOBIN 27.5 pg (27.0-33.0); MEAN CORPUSCULAR HGB CONC 33.1 g/dl (32.0-36.5); PLATELET COUNT, AUTOMATED 246 10^3/uL (150-450); RED BLOOD COUNT 3.64 10^6/uL (4.00-5.40); WHITE BLOOD COUNT 6.8 10^3/uL (4.0-10.0)
[2024-07-31 09:27] LABS: TOTAL PROTEIN,RANDOM URINE 18.8 MG/DL (0.0-14.0)
[2024-07-31 09:31] LABS: LDH LACTATE DEHYDROGENASE 219 U/L (120-246)
[2024-07-31 09:32] LABS: ALT/SGPT 10 U/L (7.0-40); AST/SGOT 12 U/L (<34); BILIRUBIN,TOTAL 0.3 MG/DL (0.3-1.2); CREATININE FOR GFR 0.53 MG/DL (0.55-1.30); GLOMERULAR FILTRATION RATE > 60.0 (>60)
[2024-07-31 09:59] LABS: HIV 1&2 SCREEN NEGATIVE (NEGATIVE)
[2024-07-31 10:07] LABS: HEPATITIS C VIRUS ABY INDEX 0.03 INDEX (<0.8)
[2024-07-31] MEDS ORDERED: OXYTOCIN DRIP 30 UNITS in IV 1 EA IV PRN (10:40)
[2024-07-31] MEDS ORDERED: LIDOCAINE 1% MDV 20ML VIAL INFIL PRN (10:40)
[2024-07-31 10:44] LABS: CREATININE,RANDOM URINE 93.5 MG/DL
[2024-07-31] MEDS: ACETAMINOPHEN 500 MG TAB PO PRN (16:23)
[2024-07-31] MEDS ORDERED: FENTANYL 2MCG/ML ROPIVACAINE 0.2% IN 0.9% NACL 100ML IVBAG As Ordered ONE (17:46)
[2024-07-31] MEDS: LR 1,000 ML IV ONE (18:00)
[2024-07-31] MEDS: LR 1,000 ML IV SCH ×2 (18:01→23:20)
[2024-07-31] MEDS ORDERED: NALOXONE INJ 0.4MG/1ML VIAL IV PRN (18:10)
[2024-07-31] MEDS ORDERED: LR 500 ML IV PRN (18:10)
[2024-07-31] MEDS ORDERED: diphenhydrAMINE 50MG/ML VIAL IV PRN (18:10)
[2024-07-31] MEDS ORDERED: EPIDURAL/PCA KEYS XX PRN (18:10)
[2024-07-31] MEDS: FENTANYL/ROPIVACAINE/NACL BAG 100 ML EPIDURAL SCH (18:30)
[2024-07-31] MEDS: OXYTOCIN DRIP 30 UNITS in IV 1 EA IV SCH (18:32)
[2024-07-31] MEDS: ePHEDrine SULFATE 25 MG/5 ML(5MG/ML) SYRINGE IVP PRN (18:38)
[2024-07-31] MEDS: ONDANSETRON 4MG 2ML VIAL IV PRN (19:58)
[2024-07-31] MEDS ORDERED: RHOGAM 300MCG (1500IU) INJ IM SCH (23:20)
[2024-07-31] MEDS ORDERED: ACETAMINOPHEN 325 MG TAB PO PRN (23:20)
[2024-07-31] MEDS ORDERED: METHYLERGONOVINE MALEATE 0.2 MG TAB PO PRN (23:20)
[2024-07-31] MEDS ORDERED: CALCIUM CARBONATE 500 MG CHEW U/D PO PRN (23:20)
[2024-07-31] MEDS ORDERED: IBUPROFEN 600MG TAB PO PRN (23:20)
[2024-07-31] MEDS ORDERED: ONDANSETRON 4MG 2ML VIAL IV PRN (23:20)
[2024-08-01] MEDS: OXYTOCIN DRIP 30 UNITS in IV 1 EA IV SCH
[2024-08-01 01:15] VITALS: BP 139/75; O2SAT 97
[2024-08-01] MEDS: IBUPROFEN 800 MG TAB PO PRN (01:23)
[2024-08-01 06:00] VITALS: BP 112/63; O2SAT 97
[2024-08-01] MEDS: PRENATAL VITAMINS CHEWABLE TABLET PO SCH (09:00)
[2024-08-01 09:01] VITALS: BP 126/70
[2024-08-01] MEDS: ACETAMINOPHEN 500 MG TAB PO PRN (09:01)
[2024-08-01 18:00] VITALS: BP 124/77; O2SAT 99
[2024-08-01] MEDS: DOCUSATE SODIUM 100MG CAPSULE PO PRN (20:46)
[2024-08-01] MEDS: DIBUCAINE 1% OINTMENT 30GM TOP PRN (21:57)
[2024-08-01] MEDS: ANUSOL HC CREAM 30GM TOP PRN (21:58)
[2024-08-02 06:00] VITALS: BP 112/71; O2SAT 97
[2024-08-02] MEDS: MEASLES,MUMPS,RUBELLA VACCINE INJ (MMR-II) SC.IMMUN ONE (09:00)
== END 2024-08-02 12:10 | disposition home or self-care (01) | DRG 560 ==
LOC: M LDI 07:22 → M OBS 08-01 01:06
PROVIDERS: ADMIT Obstetrics & Gynecology; ATTEND Obstetrics & Gynecology
PROC: 10E0XZZ Delivery of Products of Conception, External Approach (ICD-10-PCS; principal; 2024-07-31)
PROC: 3E0P7GC Introduction of Other Therapeutic Substance into Female Reproductive, Via Natural or Artificial Opening (ICD-10-PCS; 2024-07-31)
PROC: 3E033VJ Introduction of Other Hormone into Peripheral Vein, Percutaneous Approach (ICD-10-PCS; 2024-07-31)
DX: O10.92 Unspecified pre-existing hypertension complicating childbirth (principal); Z37.0 Single live birth; Z3A.37 37 weeks gestation of pregnancy; O09.523 Supervision of elderly multigravida, third trimester; Z87.891 Personal history of nicotine dependence; Z88.8 Allergy status to other drugs, medicaments and biological substances

== ENCOUNTER 2024-08-05 18:42 | Inpatient (IN) | payer OTHER ==
[~2024-08-05] VITALS: Ht 157.5 cm; Wt 94.0 kg
[~2024-08-05 18:42] MED LIST changes: +ASPI81CH33 PO
[2024-08-05 19:16] LABS: BASO % 0.3 % (0.0-1.0); EOS # 0.2 10^3/uL (0.0-0.5); EOS % 1.8 % (0.0-3.0); HEMATOCRIT 32.3 % (36.0-47.0); HEMOGLOBIN 10.5 g/dl (12.0-15.5); LYMPH # 2.4 10^3/uL (1.5-5.0); LYMPH % 27.5 % (24.0-44.0); MEAN CORPUSCULAR HEMOGLOBIN 27.1 pg (27.0-33.0); MEAN CORPUSCULAR HGB CONC 32.5 g/dl (32.0-36.5); MEAN CORPUSCULAR VOLUME 83.5 fl (80.0-96.0); MONO # 0.6 10^3/uL (0.0-0.8); MONO % 7.1 % (2.0-8.0); NEUTROPHILS # 5.4 10^3/uL (1.5-8.5); NEUTROPHILS % 62.5 % (36.0-66.0); PLATELET COUNT, AUTOMATED 306 10^3/uL (150-450); RED BLOOD COUNT 3.87 10^6/uL (4.00-5.40); WHITE BLOOD COUNT 8.7 10^3/uL (4.0-10.0)
[2024-08-05] MEDS: ACETAMINOPHEN *IV* 1,000 MG in IV 1 EA IV ONE (19:33)
[2024-08-05] MEDS: KETOROLAC 30 MG/ML 1ML VIAL IV ONE (19:34)
[2024-08-05] MEDS: NS (Normal Saline) 0.9% 1,000 ML IV ONE (19:34)
[2024-08-05 19:44] LABS: INR 0.89; PROTHROMBIN TIME 12.3 SECONDS (12.5-14.5)
[2024-08-05 19:49] LABS: ALBUMIN 2.6 G/DL (3.2-5.2); ALKALINE PHOSPHATASE 206 U/L (35-104); ALT/SGPT 14 U/L (7.0-40); AST/SGOT 10 U/L (<34); BILIRUBIN,DIRECT < 0.1 MG/DL (<0.4); BILIRUBIN,TOTAL 0.3 MG/DL (0.3-1.2); BLOOD UREA NITROGEN 7 MG/DL (9-23); CALCIUM LEVEL 8.5 MG/DL (8.5-10.1); CARBON DIOXIDE LEVEL 25 MMOL/L (20-31); CHLORIDE LEVEL 104 MMOL/L (98-107); CREATININE FOR GFR 0.63 MG/DL (0.55-1.30); GLOMERULAR FILTRATION RATE > 90.0 (>60); GLUCOSE, FASTING 80 MG/DL (60-100); POTASSIUM SERUM 3.8 MMOL/L (3.5-5.1); SODIUM LEVEL 140 MMOL/L (136-145); THYROID STIMULATING HORMONE 0.964 uIU/ML (0.55-4.78); TOTAL PROTEIN 6.3 G/DL (5.7-8.2)
[2024-08-05 21:30] LABS: MAGNESIUM LEVEL 1.9 MG/DL (1.8-2.4)
[2024-08-05 21:32] LABS: CPK CREATINE PHOSPHOKINASE 119 U/L (34-145)
[2024-08-06] VITALS (14 sets, daily range): BP systolic 134–145; BP diastolic 64–85; TEMP 98.9–101.3; O2SAT 97–100
[2024-08-06] MEDS: fentaNYL 100 MCG/2 ML INJECTION IV ONE (00:07)
[2024-08-06] MEDS: MAG SULF 1GM/100ML (MAG RUN) 1 GM in IV 1 EA IV ONE (00:07)
[2024-08-06] MEDS ORDERED: EXCEDRIN MIGRAINE TABLET PO PRN (04:15)
[2024-08-06] MEDS: ACETAMINOPHEN 325 MG TAB PO PRN (05:01)
[2024-08-06 07:57] LABS: HEMATOCRIT 30.7 % (36.0-47.0); HEMOGLOBIN 9.9 g/dl (12.0-15.5); MEAN CORPUSCULAR HEMOGLOBIN 26.9 pg (27.0-33.0); MEAN CORPUSCULAR HGB CONC 32.2 g/dl (32.0-36.5); MEAN CORPUSCULAR VOLUME 83.4 fl (80.0-96.0); PLATELET COUNT, AUTOMATED 277 10^3/uL (150-450); RED BLOOD COUNT 3.68 10^6/uL (4.00-5.40)
[2024-08-06 08:17] LABS: ALBUMIN 2.3 G/DL (3.2-5.2); ALKALINE PHOSPHATASE 183 U/L (35-104); ALT/SGPT 17 U/L (7.0-40); AST/SGOT 8 U/L (<34); BILIRUBIN,TOTAL 0.4 MG/DL (0.3-1.2); BLOOD UREA NITROGEN 5 MG/DL (9-23); CALCIUM LEVEL 7.7 MG/DL (8.5-10.1); CARBON DIOXIDE LEVEL 22 MMOL/L (20-31); CHLORIDE LEVEL 107 MMOL/L (98-107); CREATININE FOR GFR 0.57 MG/DL (0.55-1.30); GLOMERULAR FILTRATION RATE > 90.0 (>60); GLUCOSE, FASTING 90 MG/DL (60-100); POTASSIUM SERUM 3.9 MMOL/L (3.5-5.1); SODIUM LEVEL 139 MMOL/L (136-145); TOTAL PROTEIN 5.6 G/DL (5.7-8.2)
[2024-08-06] MEDS ORDERED: ASPI81TA26 PO (08:44)
[2024-08-06] MEDS ORDERED: ACET-683 PO (08:44)
[2024-08-06] MEDS ORDERED: ACET-910 PO (08:44)
[2024-08-06] MEDS ORDERED: HOME MED LIST COMPLETE! XX SCH (08:45)
[2024-08-06] MEDS ORDERED: CAFFEINE CITRATE 60MG/3ML *ORAL SOLUTION PO ONE (09:00)
[2024-08-06] MEDS ORDERED: CAFFEINE CITRATE 60MG/3ML *ORAL SOLUTION PO SCH (09:00)
[2024-08-06] MEDS: FIORICET TAB PO PRN (09:12)
[2024-08-06] MEDS ORDERED: FIORICET TAB PO ONE (10:00)
[2024-08-06] MEDS: MORPHINE 4 MG/ML 1ML VIAL IV PRN (13:47)
[2024-08-06] MEDS: cefTRIAXone SOD 2 GM in DEXTROSE 5% (D5W) ADV/MINI-BAG 50 ML IV SCH (15:02)
[2024-08-06 15:07] LABS: C REACTIVE PROTEIN QUANTITATIV 3.1 MG/DL (<1.0)
[2024-08-06 15:15] LABS: PROCALCITONIN 0.14 ng/ml
[2024-08-06] MEDS: VANCOMYCIN HCL 2,000 MG, VIAL MATE ADAPTER 1 EACH in NS 500 ML IV ONE (15:54)
[2024-08-06] MEDS: FIORICET TAB PO SCH (15:55)
[2024-08-06] MEDS: CYCLOBENZAPRINE 5MG TABLET PO ONE (17:50)
[2024-08-07] VITALS (18 sets, daily range): BP systolic 109–154; BP diastolic 59–100; TEMP 98.3–101.4; O2SAT 96–100
[2024-08-07] MEDS: VANCOMYCIN HCL 1,000 MG, VIAL MATE ADAPTER 1 EACH in NS 250 ML IV SCH (00:43)
[2024-08-07] MEDS: MORPHINE 2 MG/ML 1ML VIAL IV ONE (04:46)
[2024-08-07 06:53] LABS: BASO % 0.3 % (0.0-1.0); EOS # 0.1 10^3/uL (0.0-0.5); EOS % 1.2 % (0.0-3.0); HEMATOCRIT 30.7 % (36.0-47.0); LYMPH # 2.1 10^3/uL (1.5-5.0); LYMPH % 28.8 % (24.0-44.0); MEAN CORPUSCULAR HGB CONC 32.6 g/dl (32.0-36.5); MONO # 0.5 10^3/uL (0.0-0.8); MONO % 7.4 % (2.0-8.0); NEUTROPHILS # 4.5 10^3/uL (1.5-8.5); NEUTROPHILS % 61.5 % (36.0-66.0); PLATELET COUNT, AUTOMATED 294 10^3/uL (150-450); WHITE BLOOD COUNT 7.3 10^3/uL (4.0-10.0)
[2024-08-07 07:00] LABS: BLOOD UREA NITROGEN 6 MG/DL (9-23); C REACTIVE PROTEIN QUANTITATIV 4.18 MG/DL (<1.0); CALCIUM LEVEL 7.8 MG/DL (8.5-10.1); CARBON DIOXIDE LEVEL 23 MMOL/L (20-31); CHLORIDE LEVEL 106 MMOL/L (98-107); GLOMERULAR FILTRATION RATE > 90.0 (>60); GLUCOSE, FASTING 104 MG/DL (60-100); MAGNESIUM LEVEL 1.8 MG/DL (1.8-2.4); POTASSIUM SERUM 3.6 MMOL/L (3.5-5.1); SODIUM LEVEL 141 MMOL/L (136-145)
[2024-08-07] MEDS ORDERED: CYCLOBENZAPRINE 5MG TABLET PO SCH (09:00)
[2024-08-07] MEDS ORDERED: FIORICET TAB PO SCH (09:00)
[2024-08-07] MEDS: tiZANidine 4 MG TAB PO SCH (09:16)
[2024-08-07] MEDS: FIORICET TAB PO SCH (09:16)
[2024-08-07] MEDS ORDERED: BISACODYL 10MG SUPP PR PRN (11:20)
[2024-08-07] MEDS: VANCOMYCIN HCL 1,250 MG, VIAL MATE ADAPTER 1 EACH in NS 250 ML IV SCH (12:17)
[2024-08-07] MEDS: SENOKOT S TAB PO SCH (12:17)
[2024-08-07] MEDS: MAGNESIUM CITRATE 300ML BTL PO ONE (12:18)
[2024-08-07] MEDS: LIDOCAINE 5% (LIDODERM) PATCH TD ONE (14:16)
[2024-08-07] MEDS ORDERED: MEROPENEM INJ 2 GM in NS 100 ML IV SCH (16:45)
[2024-08-07] MEDS: MEROPENEM INJ 1 GM in IV 1 EA IV SCH ×2 (18:00→18:30)
[2024-08-07] MEDS ORDERED: PROHANCE 279.3MG/ML 15ML VIAL As Ordered ONE (18:03)
[2024-08-07] MEDS ORDERED: PROHANCE 279.3MG/ML 5ML VIAL As Ordered ONE (18:03)
[2024-08-08] VITALS (14 sets, daily range): BP systolic 115–134; BP diastolic 68–80; TEMP 97.5–101.5; O2SAT 97–100
[2024-08-08 06:36] LABS: BLOOD UREA NITROGEN 6 MG/DL (9-23); CALCIUM LEVEL 7.8 MG/DL (8.5-10.1); CARBON DIOXIDE LEVEL 24 MMOL/L (20-31); CHLORIDE LEVEL 105 MMOL/L (98-107); CREATININE FOR GFR 0.55 MG/DL (0.55-1.30); GLOMERULAR FILTRATION RATE > 90.0 (>60); GLUCOSE, FASTING 91 MG/DL (60-100); MAGNESIUM LEVEL 1.9 MG/DL (1.8-2.4); POTASSIUM SERUM 3.7 MMOL/L (3.5-5.1); SODIUM LEVEL 139 MMOL/L (136-145)
[2024-08-08] MEDS: LIDOCAINE 5% (LIDODERM) PATCH TD SCH (08:38)
[2024-08-08 11:51] LABS: VANCOMYCIN LEVEL TROUGH 13.2 UG/ML (10.0-20.0)
[2024-08-08] MEDS: PANTOPRAZOLE 40MG TAB (PROTONIX) PO SCH (12:38)
[2024-08-08] MEDS: ENOXAPARIN 40MG/0.4ML SYRINGE (J1650 PER 10MG) SC SCH (12:38)
[2024-08-08] MEDS ORDERED: PILL CUTTER 1 EACH XX PRN (12:45)
[2024-08-08] MEDS: CAFFEINE 200MG TABLET PO SCH (15:07)
[2024-08-08] MEDS: MORPHINE 2 MG/ML 1ML VIAL IV PRN (15:48)
[2024-08-08 16:12] LABS: PROCALCITONIN 0.07 ng/ml
[2024-08-08] MEDS: MIRALAX *UNIT DOSE* 17GM PACKET PO SCH (18:18)
[2024-08-09] VITALS (9 sets, daily range): BP systolic 112–155; BP diastolic 63–90; TEMP 97.3–101.8; O2SAT 96–100
[2024-08-09 06:40] LABS: BLOOD UREA NITROGEN < 5 MG/DL (9-23); CALCIUM LEVEL 8.2 MG/DL (8.5-10.1); CARBON DIOXIDE LEVEL 23 MMOL/L (20-31); CHLORIDE LEVEL 108 MMOL/L (98-107); CREATININE FOR GFR 0.53 MG/DL (0.55-1.30); GLOMERULAR FILTRATION RATE > 90.0 (>60); GLUCOSE, FASTING 94 MG/DL (60-100); MAGNESIUM LEVEL 1.8 MG/DL (1.8-2.4); POTASSIUM SERUM 3.5 MMOL/L (3.5-5.1); SODIUM LEVEL 143 MMOL/L (136-145)
[2024-08-09] MEDS: fentaNYL 100 MCG/2 ML INJECTION IV PRN (14:21)
[2024-08-09] MEDS: LIDOCAINE 1% SDV 5ML VIAL PN ONE (14:21)
[2024-08-09] MEDS: fentaNYL 100 MCG/2 ML INJECTION IV ONE (14:30)
[2024-08-09] MEDS: MORPHINE 4 MG/ML 1ML VIAL IV ONE (16:50)
[2024-08-09 17:06] LABS: APPEARANCE, CSF CLOUDY (CLEAR); COLOR, CSF RED (COLORLESS)
[2024-08-09 17:12] LABS: COLOR, CSF RED (COLORLESS)
[2024-08-09 17:13] LABS: APPEARANCE, CSF CLOUDY (CLEAR); CSF TUBE# GLU TUBE 2
[2024-08-09 17:16] LABS: CSF TUBE# TP TUBE 2
[2024-08-09] MEDS: cefTRIAXone SOD 2 GM in DEXTROSE 5% (D5W) ADV/MINI-BAG 50 ML IV SCH (21:30)
[2024-08-10 00:32] VITALS: BP 118/74; TEMP 98; O2SAT 98
[2024-08-10 04:17] VITALS: BP 120/75; TEMP 99.5; O2SAT 99
[2024-08-10 06:25] LABS: BASO % 0.3 % (0.0-1.0); EOS # 0.1 10^3/uL (0.0-0.5); EOS % 1.1 % (0.0-3.0); HEMATOCRIT 33.5 % (36.0-47.0); LYMPH # 2.7 10^3/uL (1.5-5.0); LYMPH % 37.8 % (24.0-44.0); MEAN CORPUSCULAR HEMOGLOBIN 27.5 pg (27.0-33.0); MEAN CORPUSCULAR HGB CONC 32.8 g/dl (32.0-36.5); MEAN CORPUSCULAR VOLUME 83.8 fl (80.0-96.0); MONO # 0.7 10^3/uL (0.0-0.8); MONO % 9.2 % (2.0-8.0); NEUTROPHILS # 3.7 10^3/uL (1.5-8.5); PLATELET COUNT, AUTOMATED 352 10^3/uL (150-450); WHITE BLOOD COUNT 7.2 10^3/uL (4.0-10.0)
[2024-08-10 06:55] LABS: BLOOD UREA NITROGEN 6 MG/DL (9-23); C REACTIVE PROTEIN QUANTITATIV 6.07 MG/DL (<1.0); CARBON DIOXIDE LEVEL 24 MMOL/L (20-31); CHLORIDE LEVEL 103 MMOL/L (98-107); CREATININE FOR GFR 0.57 MG/DL (0.55-1.30); GLOMERULAR FILTRATION RATE > 90.0 (>60); GLUCOSE, FASTING 82 MG/DL (60-100); IMMUNOGLOBULIN A 305.3 MG/DL (40-350); MAGNESIUM LEVEL 2.1 MG/DL (1.8-2.4); POTASSIUM SERUM 3.5 MMOL/L (3.5-5.1); SODIUM LEVEL 141 MMOL/L (136-145)
[2024-08-10 06:56] LABS: IMMUNOGLOBULIN G 669 MG/DL (650-1600)
[2024-08-10 07:40] VITALS: BP 128/81; TEMP 99; O2SAT 100
[2024-08-10 07:40] LABS: HEPATITIS C VIRUS ABY INDEX 0.02 INDEX (<0.8)
[2024-08-10] MEDS ORDERED: NALOXONE INJ 0.4MG/1ML VIAL IV PRN (08:35)
[2024-08-10] MEDS ORDERED: SENOKOT S TAB PO PRN (08:35)
[2024-08-10] MEDS ORDERED: ONDANSETRON 4MG 2ML VIAL IV PRN (08:35)
[2024-08-10] MEDS ORDERED: BISACODYL 5MG TAB PO PRN (08:35)
[2024-08-10] MEDS ORDERED: MOM 30ML SUSPENSION UDC PO PRN (08:35)
[2024-08-10] MEDS: KETOROLAC 30 MG/ML 1ML VIAL IV ONE (09:09)
[2024-08-10] MEDS: PERCOCET 5MG/325MG TAB PO ONE (09:23)
[2024-08-10] MEDS: NS (Normal Saline) 0.9% 1,000 ML IV SCH (09:23)
[2024-08-10 09:43] LABS: CSF TUBE# CELL CNT TUBE 1; CSF TUBE# CELL CNT TUBE 4
[2024-08-10] MEDS ORDERED: SODIUM CHLORIDE 0.9% INJ 10 ML SYR IV PRN (10:35)
[2024-08-10] MEDS: SODIUM CHLORIDE 0.9% INJ 10 ML SYR IV SCH (10:35)
[2024-08-10] MEDS: MORPHINE 4 MG/ML 1ML VIAL IV ONE (11:42)
[2024-08-10] MEDS ORDERED: PERCOCET 5MG/325MG TAB PO PRN ×2 (13:00→15:00)
[2024-08-10] MEDS: KETOROLAC 30 MG/ML 1ML VIAL IV SCH (15:54)
[2024-08-10 16:00] VITALS: BP 136/78; TEMP 98.6; O2SAT 96
[2024-08-10 20:19] VITALS: BP 148/66; TEMP 98; O2SAT 100
[2024-08-11] MEDS: RAMELTEON 8 MG TAB (ROZEREM) PO ONE (00:47)
[2024-08-11] MEDS: ACETAMINOPHEN *IV* 1,000 MG in IV 1 EA IV ONE ×2 (01:32→13:04)
[2024-08-11 04:20] VITALS: BP 118/57; O2SAT 98
[2024-08-11 06:38] LABS: BLOOD UREA NITROGEN 5 MG/DL (9-23); CALCIUM LEVEL 7.6 MG/DL (8.5-10.1); CARBON DIOXIDE LEVEL 23 MMOL/L (20-31); CHLORIDE LEVEL 107 MMOL/L (98-107); CREATININE FOR GFR 0.48 MG/DL (0.55-1.30); GLOMERULAR FILTRATION RATE > 90.0 (>60); GLUCOSE, FASTING 99 MG/DL (60-100); POTASSIUM SERUM 3.4 MMOL/L (3.5-5.1); SODIUM LEVEL 142 MMOL/L (136-145)
[2024-08-11 07:33] VITALS: BP 129/67; TEMP 97.6; O2SAT 99
[2024-08-11 11:35] VITALS: BP 141/85; TEMP 97.4; O2SAT 100
[2024-08-11] MEDS ORDERED: ACETAMINOPHEN 500 MG TAB PO SCH (11:55)
[2024-08-11] MEDS: DICLOFENAC EPOLAMINE 1.3% PATCH TOP SCH (12:14)
[2024-08-11] MEDS: FIORICET TAB PO ONE (12:14)
[2024-08-11] MEDS: tiZANidine 4 MG TAB PO SCH (13:04)
[2024-08-11] MEDS: GABAPENTIN 100 MG CAP PO SCH (17:11)
[2024-08-11 19:51] VITALS: BP 157/80; TEMP 98.4; O2SAT 100
[2024-08-11] MEDS: FIORICET TAB PO PRN (20:12)
[2024-08-12] MEDS: RAMELTEON 8 MG TAB (ROZEREM) PO SCH (00:18)
[2024-08-12 03:25] VITALS: BP 169/77; TEMP 98.8; O2SAT 100
[2024-08-12 04:55] LABS: BLOOD UREA NITROGEN < 5 MG/DL (9-23); CALCIUM LEVEL 8.3 MG/DL (8.5-10.1); CARBON DIOXIDE LEVEL 25 MMOL/L (20-31); CHLORIDE LEVEL 106 MMOL/L (98-107); GLOMERULAR FILTRATION RATE > 90.0 (>60); GLUCOSE, FASTING 93 MG/DL (60-100); MAGNESIUM LEVEL 2.1 MG/DL (1.8-2.4); POTASSIUM SERUM 3.5 MMOL/L (3.5-5.1); SODIUM LEVEL 141 MMOL/L (136-145)
[2024-08-12 08:38] VITALS: BP 138/88; TEMP 98.6; O2SAT 100
[2024-08-12 12:24] VITALS: BP 136/79; TEMP 98.3; O2SAT 100
[2024-08-12] MEDS: GABAPENTIN 300 MG CAP PO ONE (17:44)
[2024-08-12] MEDS ORDERED: CEFT1INJ5 IV (17:48)
[2024-08-12] MEDS ORDERED: BUTA-198 PO (17:56)
[2024-08-12] MEDS ORDERED: GABA-1172 PO (17:56)
[2024-08-12] MEDS ORDERED: DICL1PAT6 TOP (17:56)
[2024-08-12] MEDS ORDERED: SENN-52 PO (17:56)
[2024-08-12] MEDS ORDERED: RAME8TAB2 PO (17:56)
[2024-08-12] MEDS ORDERED: LIDO5TD TD (17:56)
[2024-08-12] MEDS ORDERED: TIZA10TA PO (17:56)
[2024-08-12] MEDS ORDERED: MIRA33506 PO (17:56)
[2024-08-12] MEDS: FIORICET TAB PO ONE (18:00)
[2024-08-12 19:41] VITALS: BP 122/77; TEMP 98; O2SAT 97
[2024-08-12] MEDS: MORPHINE SULFATE TAB IMM. REL. 30 MG PO ONE (19:48)
[2024-08-12] MEDS ORDERED: GABAPENTIN 100 MG CAP PO SCH (21:00)
[2024-08-13 03:42] VITALS: BP 151/83; TEMP 97.8; O2SAT 98
[2024-08-13 06:17] LABS: BLOOD UREA NITROGEN 6 MG/DL (9-23); CALCIUM LEVEL 7.8 MG/DL (8.5-10.1); CARBON DIOXIDE LEVEL 25 MMOL/L (20-31); CHLORIDE LEVEL 107 MMOL/L (98-107); CREATININE FOR GFR 0.54 MG/DL (0.55-1.30); GLOMERULAR FILTRATION RATE > 90.0 (>60); GLUCOSE, FASTING 98 MG/DL (60-100); MAGNESIUM LEVEL 1.9 MG/DL (1.8-2.4); POTASSIUM SERUM 3.4 MMOL/L (3.5-5.1); SODIUM LEVEL 142 MMOL/L (136-145)
[2024-08-13 08:15] VITALS: BP 121/68; TEMP 97.8; O2SAT 97
[2024-08-13] MEDS: GABAPENTIN 300 MG CAP PO SCH (08:19)
[2024-08-13 12:00] VITALS: BP 138/94; TEMP 98; O2SAT 97
[2024-08-13 20:20] VITALS: BP 141/83; TEMP 97.9; O2SAT 99
[2024-08-14 04:18] VITALS: BP 162/74; TEMP 97.9; O2SAT 99
[2024-08-14 07:48] VITALS: BP 124/61; TEMP 97.3; O2SAT 99
[2024-08-14 12:15] VITALS: BP 130/76; TEMP 98.6; O2SAT 97
[2024-08-14] MEDS: POTASSIUM CHLORIDE 10MEQ SR TABLET PO ONE (16:15)
[2024-08-14 18:50] VITALS: BP 132/83; TEMP 97.2; O2SAT 97
[2024-08-15 04:05] VITALS: BP 131/79; TEMP 98; O2SAT 98
== END 2024-08-15 07:30 | disposition home health service (06) | DRG 49 ==
LOC: M ED 18:42 → M ED INP 08-06 04:08 → M PCU 08-06 10:33
PROVIDERS: ADMIT Family Medicine; ATTEND General Practice
PROC: 009U3ZX Drainage of Spinal Canal, Percutaneous Approach, Diagnostic (ICD-10-PCS; principal; 2024-08-09 13:30)
DX: G00.2 Streptococcal meningitis (principal); I82.611 Acute embolism and thrombosis of superficial veins of right upper extremity; E83.51 Hypocalcemia; E87.6 Hypokalemia; G97.1 Other reaction to spinal and lumbar puncture; D63.8 Anemia in other chronic diseases classified elsewhere; E66.812 Obesity, class 2; Z68.37 Body mass index [BMI] 37.0-37.9, adult; Z88.8 Allergy status to other drugs, medicaments and biological substances; O86.89 Other specified puerperal infections; O99.03 Anemia complicating the puerperium; O99.215 Obesity complicating the puerperium; O99.285 Endocrine, nutritional and metabolic diseases complicating the puerperium; O99.355 Diseases of the nervous system complicating the puerperium; O10.03 Pre-existing essential hypertension complicating the puerperium

== ENCOUNTER → 2024-08-19 | Outpatient (CLI) | payer OTHER ==
[~2024-08-19] MED LIST changes: +ACET-910 PO; +ASPI81TA26 PO; +BUTA-198 PO; +CEFT1INJ5 IV; +DICL1PAT6 TOP; +GABA-1172 PO; +LIDO5TD TD; +MIRA33506 PO; +RAME8TAB2 PO; +SENN-52 PO; +TIZA10TA PO
[2024-08-19 18:53] LABS: ERYTHROCYTE SEDIMENTATION RATE 18 mm/hr (0-20)
[2024-08-19 18:58] LABS: BASO % 0.6 % (0.0-1.0); EOS # 0.1 10^3/uL (0.0-0.5); EOS % 2.4 % (0.0-3.0); HEMOGLOBIN 11.5 g/dl (12.0-15.5); LYMPH # 2.3 10^3/uL (1.5-5.0); LYMPH % 45.2 % (24.0-44.0); MEAN CORPUSCULAR HEMOGLOBIN 26.9 pg (27.0-33.0); MEAN CORPUSCULAR HGB CONC 31.9 g/dl (32.0-36.5); MEAN CORPUSCULAR VOLUME 84.1 fl (80.0-96.0); MONO # 0.5 10^3/uL (0.0-0.8); MONO % 10.4 % (2.0-8.0); NEUTROPHILS # 2.1 10^3/uL (1.5-8.5); PLATELET COUNT, AUTOMATED 475 10^3/uL (150-450); RED BLOOD COUNT 4.28 10^6/uL (4.00-5.40)
== END ==
LOC: M PLALAB 15:18
PROVIDERS: ATTEND Physician Assistant Medical
DX: E87.6 Hypokalemia (principal); E83.51 Hypocalcemia; I10 Essential (primary) hypertension; G00.9 Bacterial meningitis, unspecified

== ENCOUNTER → 2024-08-22 | Outpatient (REF) | payer OTHER ==
[2024-08-22 11:31] LABS: HEMATOCRIT 35.9 % (36.0-47.0); HEMOGLOBIN 11.6 g/dl (12.0-15.5); MEAN CORPUSCULAR HEMOGLOBIN 26.7 pg (27.0-33.0); MEAN CORPUSCULAR HGB CONC 32.3 g/dl (32.0-36.5); MEAN CORPUSCULAR VOLUME 82.5 fl (80.0-96.0); PLATELET COUNT, AUTOMATED 380 10^3/uL (150-450); RED BLOOD COUNT 4.35 10^6/uL (4.00-5.40); WHITE BLOOD COUNT 3.7 10^3/uL (4.0-10.0)
[2024-08-22 11:46] LABS: ERYTHROCYTE SEDIMENTATION RATE 16 mm/hr (0-20)
[2024-08-22 11:57] LABS: ALBUMIN 3.5 G/DL (3.2-5.2); ALKALINE PHOSPHATASE 173 U/L (35-104); ALT/SGPT 16 U/L (7.0-40); AST/SGOT < 8 U/L (<34); BILIRUBIN,TOTAL 0.3 MG/DL (0.3-1.2); BLOOD UREA NITROGEN 10 MG/DL (9-23); C REACTIVE PROTEIN QUANTITATIV 0.63 MG/DL (<1.0); CALCIUM LEVEL 8.5 MG/DL (8.5-10.1); CARBON DIOXIDE LEVEL 26 MMOL/L (20-31); CHLORIDE LEVEL 103 MMOL/L (98-107); CREATININE FOR GFR 0.59 MG/DL (0.55-1.30); GLOMERULAR FILTRATION RATE > 90.0 (>60); GLUCOSE, FASTING 89 MG/DL (60-100); POTASSIUM SERUM 4.1 MMOL/L (3.5-5.1); SODIUM LEVEL 140 MMOL/L (136-145); TOTAL PROTEIN 6.8 G/DL (5.7-8.2)
== END ==
LOC: M LAB REF 10:53
PROVIDERS: ATTEND Internal Medicine Infectious Disease
DX: E87.6 Hypokalemia (principal); E83.51 Hypocalcemia; G00.9 Bacterial meningitis, unspecified; I10 Essential (primary) hypertension

== ENCOUNTER → 2024-11-25 | Outpatient (CLI) | payer OTHER ==
[~2024-11-25] MED LIST changes: -ACE65ERTAB PO; +ACET-1593 PO; +ACET-716 PO; +IBUP80TA PO; +OXYC1TAB23 PO
[2024-11-25 13:19] LABS: APPEARANCE, URINE HAZY (CLEAR); BACTERIA, URINE AUTO NEGATIVE (NEGATIVE); BILIRUBIN, URINE AUTO NEGATIVE (NEGATIVE); BLOOD, URINE BLOOD NEGATIVE (NEGATIVE); GLUCOSE, URINE (UA) AUTO NEGATIVE (NEGATIVE); KETONE, URINE AUTO NEGATIVE (NEGATIVE); LEUKOCYTE ESTERASE, URINE AUTO NEGATIVE (NEGATIVE); MUCUS, URINE SMALL (NEGATIVE); NITRITE, URINE AUTO NEGATIVE (NEGATIVE); PROTEIN, URINE AUTO NEGATIVE (NEGATIVE); RBC, URINE AUTO 1 /HPF (0-3); SPECIFIC GRAVITY URINE AUTO 1.012 (1.002-1.035); SQUAMOUS EPITHELIAL CELL UR AU 10 /HPF (0-6); UROBILINOGEN, URINE AUTO 0.2 mg/dL (0.0-2.0); WBC, URINE AUTO 2 /HPF (0-3)
[2024-11-25 14:10] LABS: HEPATITIS B SURFACE ANTIBODY NEGATIVE (POSITIVE)
[2024-11-25 14:27] LABS: Trichomonas vaginalis (AMP) NOT DETECTED (NEGATIVE)
[2024-11-25 14:35] LABS: HIV 1&2 SCREEN NEGATIVE (NEGATIVE)
[2024-11-25 14:51] LABS: GC DNA AMPLIFICATION NEGATIVE (NEGATIVE)
[2024-11-25 15:39] LABS: HEPATITIS C VIRUS ABY INDEX < 0.02 INDEX (<0.8)
== END ==
LOC: M PLALAB 10:28
PROVIDERS: ATTEND Physician Assistant Medical
DX: Z20.2 Contact with and (suspected) exposure to infections with a predominantly sexual mode of transmission (principal)

== ENCOUNTER → 2024-11-25 | Day surgery (SDC) | payer OTHER ==
[~2024-11-25] VITALS: Ht 157.5 cm; Wt 84.5 kg
[~2024-11-25] MED LIST changes: +ACETAMINOPHEN 1000MG/100ML IV BAG As Ordered ONE; +LIDOCAINE 2% 100 MG/5 ML SDV (FOR ANES.) As Ordered ONE; +LR 1,000 ML IV SCH; +ONDANSETRON 4MG 2ML VIAL As Ordered ONE; +dexAMETHasone 4 MG/ML 1 ML VIAL As Ordered ONE
[2024-11-25] MEDS: ceFAZolin SOD 2 GM IV ONCE IV ONE (12:25)
[2024-11-25 13:42] VITALS: BP 123/78; TEMP 97.7; O2SAT 99
== END | disposition home or self-care (01) ==
LOC: M SDC 11:47
PROVIDERS: ATTEND Surgery
DX: T85.628A Displacement of other specified internal prosthetic devices, implants and grafts, initial encounter (principal)
CPT/HCPCS: 11982; 76000; 88300; J0131; J0665; J0690; J1100; J2405; J3010

== ENCOUNTER → 2025-04-10 | Outpatient (REF) | payer OTHER ==
[~2025-04-10] MED LIST changes: +ACET-1387 PO; -ACET-1593 PO; -ACETAMINOPHEN 1000MG/100ML IV BAG As Ordered ONE; -IBUP-1022 PO; +IBUP600T42 PO; -LABE100T6; +LABE100T91; -LIDOCAINE 2% 100 MG/5 ML SDV (FOR ANES.) As Ordered ONE; -LR 1,000 ML IV SCH; -ONDANSETRON 4MG 2ML VIAL As Ordered ONE; -dexAMETHasone 4 MG/ML 1 ML VIAL As Ordered ONE
[2025-04-13 17:03] LABS: HPV APTIMA Not Detected (Not Detected)
== END ==
LOC: M SFHCWAGY 13:02
PROVIDERS: ATTEND Obstetrics & Gynecology
DX: Z12.4 Encounter for screening for malignant neoplasm of cervix (principal); R87.610 Atypical squamous cells of undetermined significance on cytologic smear of cervix (ASC-US)